=== PATIENT | female | born 1930 | race Caucasian/White ===

== ENCOUNTER 2017-04-07 11:25 | Inpatient (IN) ==
--- NOTE | 2017-04-07 11:46 | Emergency Department Report ---
General Adult HPI - General Chief complaint: Fall Stated complaint: fall Time Seen by Provider: 04/07/17 11:46 Source: patient Mode of arrival: ambulatory Limitations: no limitations - History of Present Illness HPI narrative: Patient is an 86-year-old female sent to the emergency department for increasing weakness multiple number falls. Patient has fallen twice in the last 2 days, is currently in assisted living. Patient has a large skin tear on her left shoulder, does not believe she hit her head last 2 falls. Patient states she just hurts all over, increasing low back pain as well. Patient arrives irregularly irregular rhythm at 150, no history of dysrhythmias or tachycardias. - Related Data Home Medications Medication Instructions Recorded Confirmed Pantoprazole Sodium [Protonix] 40 mg PO DAILY #0 05/03/15 04/07/17 Acetaminophen 1,000 mg PO TID #0 08/08/16 04/07/17 Carbidopa/Levodopa [Carbidopa-Levo 1.5 tab PO TID/E #0 08/08/16 04/07/17 25-100 mg Odt] Ropinirole [Requip] 2 mg PO TID 02/14/17 04/07/17 Tramadol [Ultram] 25 mg PO Q8H PRN 02/14/17 04/07/17 Cholecalciferol (Vitamin D3) 1,000 unit PO DAILY 04/07/17 04/07/17 [Vitamin D3] Omeprazole [Prilosec] 20 mg PO HS 04/07/17 04/07/17 Allergies Allergy/AdvReac Type Severity Reaction Status Date / Time No Known Allergies Allergy Verified 04/07/17 11:38 Review of Systems Constitutional: Reports: weakness. Denies: fever, chills Eyes: Denies: eye discharge, vision change ENT: Denies: throat pain, dental pain Cardiovascular: Reports: palpitations, dyspnea on exertion. Denies: chest pain Respiratory: Denies: cough, dyspnea, wheezes, hemoptysis Gastrointestinal: Denies: abdominal pain, nausea, vomiting Genitourinary: Denies: dysuria, frequency Neurological: Reports: weakness (generalized generalized nonspecific). Denies: headache, numbness Endocrine: Reports: fatigue Hematological/Lymphatic: Denies: easy bleeding, easy bruising PFSH Patient Stated Medical History Parkinson's Disease Yes Cataracts Yes Cardiac Arrhythmia Yes: AFIB TODAY Gastroesophageal Reflux Yes Disease Hx Incontinence Yes: 'NOT TOO BAD' Hx Urinary Tract Infection Yes Osteoarthritis Yes Shingles Yes Post Menopausal Yes Clinic Medical History Adult idiopathic generalized osteoporosis (Acute Medical) Allergic rhinitis (Acute Medical) Chronic kidney disease (Acute Medical) FH: HTN (hypertension) (Acute Medical) GERD (gastroesophageal reflux disease) (Acute Medical) Hyperlipemia (Acute Medical) Leg pain (Acute Medical) Parkinson disease (Acute Medical) Restless leg syndrome (Acute Medical) Surgical History: Nose Surgery due to skin cancer Family History: Family History Father Heart failure Mother High cholesterol Heart attack - Social History Smoking status: Former smoker Substance use type: does not use Alcohol intake frequency: does not drink Physical Exam - General General appearance: alert, in no apparent distress - Eye Eye exam: Present: PERRL, EOMI - ENT ENT exam: Present: normal oropharynx, mucous membranes moist, TM's normal bilaterally - Neck Neck exam: Present: trachea midline. Absent: tenderness - Chest Chest inspection: Present: symmetric chest wall rise. Absent: tenderness - Respiratory Respiratory exam: Present: normal lung sounds bilaterally. Absent: respiratory distress, wheezes, stridor - Cardiovascular Cardiovascular exam: Present: irregular rhythm, normal heart sounds - Abdominal Exam Abdominal exam: Present: soft. Absent: distention, tenderness, guarding - External exam: Present: other (patient has large skin tear on her left shoulder with good approximation,) - Extremities Exam Extremities exam: Present: full ROM - Back Exam Back exam: Present: full ROM, vertebral tenderness (lumbar spine tenderness to palpation). Absent: tenderness, CVA tenderness (R), CVA tenderness (L) - Skin Skin exam: Present: warm, dry, other (see above) - Neurological Exam Neurological exam: Present: alert, oriented X3 - Psychiatric Psychiatric exam: Present: normal affect, normal mood Course Vital Signs Temperature 97.8 F 04/07/17 11:28 Pulse Rate 127 H 04/07/17 11:28 Respiratory Rate 21 04/07/17 11:28 Blood Pressure 110/67 04/07/17 11:28 Pulse Oximetry 96 04/07/17 11:28 Temperature 97.8 F 04/07/17 11:28 Pulse Rate 94 04/07/17 12:30 Respiratory Rate 12 04/07/17 12:30 Blood Pressure 110/67 04/07/17 11:28 Pulse Oximetry 98 04/07/17 12:30 Medical Decision Making - MDM Narrative Medical decision making narrative: Patient with new onset RVR, currently rate controlled with Cardizem time, discuss case with Dr. Rudolph Vela's group, they will admit to the CCU - Medical Records Medical records reviewed: Yes: I reviewed the patient's medical records. - Lab Data Lab results reviewed: Yes: I reviewed the patient's lab results. Result diagrams: 04/07/17 12:01 04/07/17 12:01 Lab Results 04/07/17 04/07/17 Range/Units 12: 12:01 WBC 6.8 (4.5-11.0) T/MM3 RBC 3.44 L (4.00-5.20) M/MM3 Hgb 11.3 L (12-16) GM/DL Hct 35.8 L (36-46) % MCV 104.1 H (80-100) UM3 MCH 32.8 (26-34) UUG MCHC 31.6 (31-37) GM/DL RDW Std Deviation 48.2 (36.9-50.2) FL Plt Count 385 (130-400) T/MM3 MPV 8.7 L (9.4-12.4) UM3 Immature Gran % (Auto) 0.1 (0.0-0.5) % Neut % (Auto) 79.1 H (33-66) % Lymph % (Auto) 10.2 L (23-45) % Burt % (Auto) 9.4 H (0-9.0) % Eos % (Auto) 0.9 (0-4) % Baso % (Auto) 0.3 (0-2) % Neut # 5.4 (1.8-7.7) T/MM3 Lymph # 0.7 L (1-4.8) T/MM3 Burt # 0.6 (0-0.8) T/MM3 Eos # 0.1 (0-0.5) T/MM3 Baso # 0.0 (0-0.2) T/MM3 Abs Immat Gran (auto) 0.01 (0.00-0.03) T/MM3 Turbidity < 20 (0-20) Sodium 139 (134-144) MEQ/L Potassium 4.7 (3.6-5) MEQ/L Chloride 104 (98-107) MEQ/L Carbon Dioxide 25 (22-30) MEQ/L Anion Gap 10 (5-15) MEQ/L BUN 29.0 H (7-17) MG/DL Creatinine 1.1 (0.7-1.2) MG/DL GFR Calculation 47 BUN/Creatinine Ratio 26 (6-26) RATIO Glucose 84 (65-110) MG/DL Calculated Osmolality 273 (261-280) MOSM/KG Calcium 9.7 (8.4-10.2) MG/DL Total Bilirubin 0.80 (0.20-1.30) MG/DL Icterus Index < 2 (0-7) AST 15 (14-36) U/L ALT 19 (9-52) U/L Alkaline Phosphatase 86 (38-126) U/L Troponin I 0.047 (0-0.12) ng/ml B-Natriuretic Peptide 609 H (0-175) pg/mL Total Protein 7.0 (6.3-8.2) G/DL Albumin 4.0 (3.5-5.0) G/DL Globulin 3.0 (2.4-3.6) G/DL Albumin/Globulin Ratio 1.3 (1.1-2.2) RATIO Specimen Hemolysis < 15 (0-25) - Radiology Data Radiology results reviewed: Yes: I reviewed the patient's radiology results. CT scan head: No acute intracranial abnormalities CT scan lumbar spine, chronic compression fractures no acute findings Chest x-ray 2 view: No acute cardiopulmonary findings - EKG Data EKG #1 EKG attestation: Yes: I reviewed and interpreted this EKG. Rate: tachycardia Rhythm: A.Fib [place]/QRS: normal Interpretation: no acute changes Disposition Clinical Impression: Atrial fibrillation with RVR Disposition: 02 To [facility] Condition: Stable - Seen By: physician
[2017-04-07] MEDS ORDERED: DiltiaZEM 25 MG/5 ML INJECTION IVP ONE (11:52)
[2017-04-07] MEDS: SALINE FLUSH 10ml SYRINGE IVF PRN ×3 (11:55→22:19)
[2017-04-07] MEDS ORDERED: DiltiaZEM Drip 125 MG in NS 100 ML IV SCH (12:00)
[2017-04-07] MEDS: NS 1,000 ML IV ONE ×2 (12:12→16:32)
--- OUTSIDE RECORDS SUMMARY | 2017-04-07 12:22 | External Medical Summary | Referral Summary ---
:1930 Author Organization [facility] [place] [place] [address] Care Team Providers Name Role Phone Kevin Stewart Primary Care Physician Encounter VC Date(s): 08/07/15 - 08/07/15 [facility] [place] [place] [phone] [place] Discharge Diagnosis: Back pain, chronic Discharge Disposition: 01-Home or Self Care Attending Physician: Jarett Casey APRN Admitting Physician: Jarett Casey APRN Vital Signs Most recent to oldest [Reference Range]: 1 Peripheral Pulse Rate [60-100 bpm] 78 bpm (08/07/15 10:16 AM) Blood Pressure [90-140/60-90 mmHg] 134/72 mmHg (08/07/15 10:16 AM) Problem List Condition Effective Dates Status Health Status Informant Adult idiopathic generalized Active osteoporosis(Confirmed) Allergic rhinitis(Confirmed) Active Chronic kidney disease Active (CKD)(Confirmed) Blood pressure elevated(Confirmed) Active GERD without esophagitis(Confirmed) Active Hyperlipidemia(Confirmed) Active Acute leg pain(Confirmed) Active Parkinson's disease(Confirmed) Active Restless legs syndrome Active (RLS)(Confirmed) Allergies, Adverse Reactions, Alerts No Known Allergies Medications cetirizine 10 mg oral tablet 10 mg 1 tabs, Oral, Daily, as needed for allergy symptoms, # 10 tabs, 0 Refill(s ) Start Date: 05/31/15 Status: Orderedmeloxicam 15 mg oral tablet 15 mg 1 tabs, Oral, Daily, # 15 tabs, 0 Refill(s), Pharmacy: [facility] # [id number], 1 tabs Oral Daily Start Date: 08/07/15 Status: OrderedPhysical Therapy Physical Therapy, See Instructions, Eval and treat for back pain and leg weakness., # 1 Each, 0 Refill(s) Start Date: 02/14/15 Status: OrderedProtonix 40 mg oral delayed release tablet 40 mg 1 tabs, Oral, Daily, # 90 tabs, 1 Refill(s), Pharmacy: [facility] # [id number], PT REQUESTS MEDICATION DELIVERY, 1 tabs Oral Daily,x90 days Start Date: 05/31/15 Stop Date: 11/27/15 Status: OrderedrOPINIRole 1 mg oral tablet 1 mg 1 tabs, Oral, Daily, Take with 3 mg pill., # 30 tabs, 0 Refill(s), Pharmacy : [facility] #[id number], 1 tabs Oral Daily,Instr:Take with 3 mg pill. Start Date: 08/07/15 Status: OrderedrOPINIRole 3 mg oral tablet 3 mg 1 tabs, Oral, Daily, # 90 tabs, 1 Refill(s), Pharmacy: [facility] # [id number], 1 tabs Oral Daily,x90 days Start Date: 05/31/15 Stop Date: 11/27/15 Status: OrderedTylenol Extra Strength 1,000 mg, Oral, TID, as needed for pain, 0 Refill(s) Start Date: 02/14/15 Status: Ordered Results No data available for this section Immunizations Vaccine Date Refusal Reason influenza virus vaccine, inactivated1 04/19/15 pneumococcal 23-polyvalent vaccine2 05/04/15 1Result Comment: [04/19/2015] High-Dose [id number] History: Bettye Javier Procedures Procedure Date Related Diagnosis Body Site Dual-energy X-ray absorptiometry (DXA), bone 12/12/10 density study, 1 or more sites; axial skeleton (eg, hips, pelvis, spine) Social History Social History Type Response Smoking Status Former smoker Assessment and Plan Extracted from: Title: Office Visit Note Author: Jarett Casey [employer] Date: 08/07/15 Assessment/Plan Back pain, chronic In addition to her increased back pain she also reports that she is having more difficulty with her restless legs. Potentiallythis may be exacerbating her back pain as well. W emilio will have her increase by 1 mg tonight and call us witha report on to see if this is improve her symptoms. Additionally I think it is likely that her back pain is related to osteoarthriti sand some anti-inflammatory would be a good choicefor her. A recent basement metabolic panel showsnormal kidney function. We will have her take meloxicam dailyfor 2 weeksand check another basic metabolic panel before continuing this therapy. Ordered: Basic Metabolic Panel Orders: meloxicam, 15 mg 1 tabs, Oral, Daily, # 15 tabs, 0 Refill(s), Pharmacy: [facility] #[id number], 1 tabs Oral Daily rOPINIRole, 1 mg 1 tabs, Oral, Daily, Take with 3 mg pill., # 30 tabs, 0 Refill(s), Pharmacy: [facility] #[id number], 1 tabs Oral Daily,Instr:Take with 3 mg pill.
--- OUTSIDE RECORDS SUMMARY | 2017-04-07 12:22 | External Medical Summary | Referral Summary ---
:1930 [facility] [address] [place] [address] [place] [phone] Care Team Providers Name Role Phone Kevin Stewart Primary Care Physician Encounter VC Date(s): 05/24/15 - 05/24/15 [facility] [place] [place] [phone] [place] Discharge Diagnosis: Visit for wound care Discharge Diagnosis: Multiple skin tears Discharge Disposition: 01-Home or Self Care Attending Physician: Kevin Stewart DO Admitting Physician: Kevin Stewart DO Vital Signs Most recent to oldest [Reference Range]: 1 Temperature Tympanic [36.6-38.1 degC] 36.7 degC (05/24/15 9:22 AM) Peripheral Pulse Rate [60-100 bpm] 93 bpm (05/24/15 9:22 AM) Blood Pressure [90-140/60-90 mmHg] 115/55 mmHg (05/24/15 9:22 AM) SpO2 96 % (05/24/15 9:22 AM) Problem List Condition Effective Dates Status Health Status Informant Adult idiopathic generalized Active osteoporosis(Confirmed) Allergic rhinitis(Confirmed) Active Chronic kidney disease Active (CKD)(Confirmed) Blood pressure elevated(Confirmed) Active GERD without esophagitis(Confirmed) Active Hyperlipidemia(Confirmed) Active Acute leg pain(Confirmed) Active Parkinson's disease(Confirmed) Active Restless legs syndrome Active (RLS)(Confirmed) Allergies, Adverse Reactions, Alerts No Known Allergies Medications Lipitor 20 mg oral tablet 20 mg 1 tabs, Oral, Daily, # 90 tabs, 0 Refill(s), Pharmacy: [facility] # [id number], 1 tabs Oral Daily,x90 days Start Date: 02/14/15 Stop Date: 05/15/15 Status: OrderedPhysical Therapy Physical Therapy, See Instructions, Eval and treat for back pain and leg weakness., # 1 Each, 0 Refill(s) Start Date: 02/14/15 Status: OrderedProtonix 40 mg oral delayed release tablet 40 mg 1 tabs, Oral, Daily, # 30 tabs, 0 Refill(s), Pharmacy: [facility] # [id number], PT REQUESTS MEDICATION DELIVERY, 1 tabs Oral Daily Start Date: 02/27/15 Status: OrderedRequip 2 mg oral tablet 2 mg 1 tabs, Oral, Daily, # 90 tabs, 3 Refill(s), Pharmacy: [facility] # [id number], 1 tabs Oral Daily,x90 days Start Date: 03/31/15 Stop Date: 03/25/16 Status: OrderedTylenol Extra Strength 1,000 mg, Oral, TID, as needed for pain, 0 Refill(s) Start Date: 02/14/15 Status: Ordered Results No data available for this section Immunizations Vaccine Date Refusal Reason influenza virus vaccine, inactivated1 04/19/15 pneumococcal 23-polyvalent vaccine2 05/04/15 1Result Comment: [04/19/2015] High-Dose [id number] History: Bettye Javier Procedures Procedure Date Related Diagnosis Body Site Dual-energy X-ray absorptiometry (DXA), bone 12/12/10 density study, 1 or more sites; axial skeleton (eg, hips, pelvis, spine) Social History Social History Type Response Smoking Status Former smoker Assessment and Plan Extracted from: Title: Office Visit Note Author: Kevin Stewart DO Date: 05/24/15 Assessment/Plan Multiple skin tears 1. Skin tears appear to be healing well. 2. Continue with dressing changes needed. Recommended using DuoDERM instead of the dressing they had previously. 3. Follow-up in one week for reevaluation, earlier if any new concerns. Ordered: Office Visit Level 3 Est 86014 Visit for wound care As above. Ordered: Office Visit Level 3 Est 43970
--- OUTSIDE RECORDS SUMMARY | 2017-04-07 12:22 | External Medical Summary | Clinical Summary ---
:1930 Author Organization [facility] Address [address] [place] [address] Phone Care Team Providers Name Role Phone Unavailable Primary Care Provider Unavailable Source Comments Some departments are not documenting in the electronic medical record. If you do not see the information that you expected, contact Release of Information in the Health Information Management department at [phone] for further assistance in locating additional records.[facility] Allergies No Known Allergies Current Medications Prescription Sig. Disp. Refills Start Date End Date Status acetaminophen (TYLENOL) Take 2 Tabs by 120 Tab 3 11/09/2014 Active 500 mg tablet mouth every 8 hours. cetirizine (ZYRTEC) 10 mg Take 1 Tab by 30 Tab 11 11/09/2014 Active tabletIndications: mouth daily. Allergic rhinitis, unspecified allergic rhinitis type atorvastatin (LIPITOR) 20 Take 1 Tab by 90 Tab 3 11/09/2014 Active mg tabletIndications: mouth daily. Hyperlipidemia rOPINIRole (REQUIP) 1 mg Take 1 Tab by 30 Tab 3 12/09/2014 Active tabletIndications: mouth daily. Restless legs syndrome Active Problems Problem Noted Date Excessive drinking alcohol 11/10/2014 Overview: 11/09/2014: Pt advised to cut back on her alcohol use to 7 or less beers a week. Currently drinks upto 2 beers almost daily. Unintentional weight loss 11/10/2014 Overview: 11/09/2014: Body mass index is 18.29 kg/(m^2). 100 lbs. Pt advised to eat more high calorie foods and supplement with Boost shakes. Will re-evaluate in 4 weeks. Restless legs syndrome 04/11/2014 Overview: 04/11/2014: RLS, foot cramps, tremors. At night she can not hold her legs still and the feet get cramps. She gets restless legs 4-5x a week and she can not find an association with days she has it versu s not. She gets some numbness and tingling in her legs, but no B/B incontinence. Prescribed a trial of ropinirole 0.25 mg qhs for 2 days, then 0.5 mg. Stay off atorvastatin for 2 weeks to see if the foot cramps get better. 11/09/2014: Thinks ropinirole helped but ran out and did not have a refill. Will restart. 12/09/2014: Taking ropinirole 0.5 mg. No improvement. Increase to 1 mg. UTI (lower urinary tract infection) 12/27/2013 Overview: 12/27/2013: +Dysuria on top of chronic sx. Urine dip +nitrite, blood and leuks. Based on last C+S from 2012, prescribed keflex for 5 days. Urine sent for C+S. Can tailor abx based on the report. UPDATE &g t;> Urine grew >100K klebsiella, S to keflex. 11/09/2014: Sx of UTI again. Rxed cephalexin. Urine sent for C+S. UPDATE >&gt ; Cx grew >100k Klebsiella. S to keflex. 12/09/2014: Sx improved, then recurred after she finished her course of abx. Rxed keflex again for 7 days. Urine sent for C+S. Essential tremor 11/10/2013 Overview: Mysoline caused side effects, inderal at low dose not effective 12/27/2013: Has been tried on BB, primidone in ~ 12/2012, but did not tolerate because of side effects. Referred to Neurology and Dr Rea started her on gabapentin. She is now on 200 mg tid. Reports no real resolution, can typically suppress them with conscious effort, otherwise not much change. Feels like gabapentin is making her whoozy, and she is having to be really careful walking, so she does not fall. Asked her to let Dr Rea know. Would certainly not want her to fall, considering her frailty and osteoporosis. Need to watch dose since has CKd stage 3. 04/11/2014: See 'tremor' for details. Last Assessment & Plan: Formatting of this note may be different from the original. Will start gabapentin slowly as follows: AM PM Bed Week 1 100mg Week 2 100mg 100mg Week 3 100mg 100mg 100mg Week 4 100mg 100mg 200mg Week 5 200mg 100mg 200mg Week 6 200mg 200mg 200mg Allergic rhinitis 10/29/2013 Overview: 10/27/2013: prescribed a trial of daily zyrtec. 11/25/2013: considerably better with zyrtec. 11/09/2014: Has been out of meds. Recurrent sx. Med refilled. 12/09/2014: Back on zyrtec. Sx significantly better controlled. Rash 10/29/2013 Overview: 10/27/2013: following w/outside Derm for skin cancer tx. Derm wanted some blodd work. Asked her to get records. Will order accordingly. 11/25/2013: recommended OTC hydrocortisone cream for the pruritic rash on the chest 04/11/2014: Says is resolved at this time Mixed incontinence urge and stress 10/27/2013 Overview: 12/04/2012: Frequency, urgency, dysuria for a few days. Urine dip dirty. rxed 7 days of keflex. Cr Cr ~ 26. Hence did not want to do bactrim, nitrofurantoin or cipro. Will send for C+S. January 26, 2013: Urge and stress incontinence with overactive bladder: High risk of side effects with anticholinergics. Handout given on bladder re- training. Will work on these. The dysuria resolved with the round of abx. 10/27/2013: Mmyrbetriq helped some, but too expensive, and she does not think the effectiveness was worth the cost. Wants to try something cheaper. Prescribed detrol 1 mg bid. 12/27/2013: Detrol 1 mg bid also too is expensive and she has not picked it either. Told her since already having side effects from the gabapentin, I don't want to add another agent with the potential to cause more side effects. Reports having dysuria in addition right now. Urine dip +nitrite, blood and leuks. Based on last C+S from 2012, prescribed keflex for 5 days. Urine sent for C+S. Can tailor abx based on the report. 04/11/2014: She continues to have frequent trips to the bathroom. Myrbetriq and detrol have been prescribed, but were too expensive. Will rx a trial of oxybutynin low dose, once ropinirole tried for for RLS. 12/09/2014: She stopped the medicine after she ran out of her refills. Does not remember if it helped. Easy bruising 12/04/2012 Overview: December 04, 2012 CBC, PLTs ok. Due to ?CKD causing impaired renal function. CKD (chronic kidney disease) 12/04/2012 Overview: December 04, 2012 Will monitor for now. She has had a renal U/s in 05/2010 which showed medical renal disease. Avoid nephrotoxins. Ordered PTH, Vit d levels with the next set of labs. December 27, 2013 (Stage 3): eGFR ~ 30-40s. Vitamin D ok. Will get PTH with next set if labs (last was 'TNP'. Watch for now. Avoid nephrotoxic drugs. 11/09/2014: Ordered labs 12/09/2014: Vit D and PTH levels ok. Creatinine stable. Tremors of nervous system 11/04/2012 Overview: November 04, 2012 Has been having tremors in the hands, also feels centrally shaky. Appetite ok, no diarrhea or constipation. For ~ yr she had been using her finger to apply thyroid medicine in her cat's e ar. Recently realized was not supposed to use bare finger and so has started wearing a glove when doing it. Continued hair loss Ordered CBC, CMP, TSH for underlying issues. Neuro exam wnl. Likely essential tremors (do not appear consistent with PD, no other features of PD). BP mostly on the low side, will try primidone if all labs wnl. RTC 1 month for re-eval. December 04, 2012 CBC (high MCH), CMP (CKD), TSH were wnl. I asked to start primidone through a phone message. Took one dose of primidone (but took 1 full 50 mg tab instead of 1/2 as I had recommended). [place] sleepy all day. Got nervous, has guests coming over the weekend, so decided to wait till they were one to restart it. Told her actually might be a better idea to try this when she has people in the [facility], so will be supervised incase she has side effects. Will restart when she has company over the weekend, at 1/2 dose. And keep it at 25 mg. January 26, 2013: Took primidone for a week. Side effects. Feeling giddy, whoozy. Tired. Did not like it and stopped. Tremors persist. At rest mostly, worse in antigravity position. Seem c/w exaggerated phy siological tremor). No hindrance with activities. Says does not want extensive work up or treatment which will cause side effects. Are not that bothersome. Does not want to see a neurologist. Will try low dose propranolol (10 mg bid) instead. Advised caution. 10/27/2013: CBC (high MCH), CMP (CKD), TSH were wnl. Did not tolerate primidone in 11/2012. No hindrance with activities, till recently when they have been worsening and been more disruptive, getting worse with action. Did not tolerate propranolol either in 01/2013. I had offered to refer to Neurology and she had refused. But agreeable to seeing them now, considering tremors more disruptive and her intolerance of medication. 11/25/2013: Not better, but not worse either. Continue the gabepentin as rxed by Dr Rea in Neurology. 04/11/2014: She has not tolerated primidone and BB in the past. Was referred to Neuro and started on gabapentin. She is not taking the gabapentin either anymore, because of side effects and ineffectiveness. Started ropinirole trial for RLS. 11/09/2014: Thinks ropinirole helped. But ran out and did not have a refill. Refilled. Asked her to check w/Neuro again, for possibility of DBS, since has been intolerant of medication and tremors are very distressing and disruptive. 12/09/2014: Taking ropinirole 0.5 mg. No improvement, tolerating ok. Increase dose to 1 mg. Hair loss 08/15/2011 Overview: Hair loss: derm said to have TSH checked. Last check was in 02/2011: wnl. Homocysteine level was elevated, Has been on B12 orally daily since. Also on MVI, Ca+Vit D supplementation. Elevated cr, otherwise labs unremarkable. GERD (gastroesophageal reflux disease) 04/12/2011 Overview: November 04, 2012 Takes alkaseltzer and zantac with good relief. 12/09/2014: Protonix rxed, since she responds well to it. Leg pain 03/07/2011 Overview: Reports similar sensation in the leg as RLS she knows she has. Sx have been more intense, and more frequent, occuring regularly during the daytime as well. No recent exertional activity. Exercises regularly in her exercise class, also swims. Has not over done anything. No new medicines. No signs or sx of PAD, neurogenic claudication, myalgias or paresthesias. CBC, fe studies (mild anemia on previous testing with elevated RDW), folic acid , B12 (macrocytosis on last test), vit D level, CMP, TSH have been unremarkable in 02/2011. ? nerve impingement in the L-S spine, leading to patient's sx, or PAD (this seems less likely, since she does not have risk factors, and hx not typical for vascular claudication). ? Statin side effect 11/25/2013: LBP: for the last 2-3 months. Non radiating, no associated tingling, numbness and weakness. Worse with repetitive bending, leaning forward. Hx of osteoporosis. Ordered plain film. Plain APAP 1 gm tid. Refrain from NSAIDs. 12/27/2013: Since ~ 08/2013. 11/25/2013: L SPINE AP & LATERAL IMPRESSION: 1. SUPERIOR ENDPLATE CENTRAL ENDPLATE COMPRESSION DEFORMITY. 2. GENERALIZED BONY DEMINERALIZATION. 3. DEGENERATIVE CHANGES INVOLVING THE MID AND LOWER LUMBAR SPINE WITH MARKED JOINT SPACE LOSS AT THE L4-L5 AND L5-S1 LEVELS. DEXA was done as well, has not been read yet. Last one was in 2010. Was nervous about taking 1 gm tid APAP and has been taking only 650 mg prn and not daily. Significant pain when working in her yard, and has to take things very slow. Explained to her why we cannot do N SAIDs (because of CKD), and that APAP 1 gm tid should be ok. She will try this now and update me in 2-3 weeks. Also trial of nasal calcitonin for the pain from the osteoporotic fracture. If not better w ith this, can do stronger meds like hydrocodone. 04/11/2014: Has significant pain in the back, but she has learnt her limitations. She has been taking extra strength Tylenol as needed, which is usually at night. It relieves the pain. Will continue. If gets worse >> will get MRI and refer her to the Pain clinic. Last Assessment & Plan: Cramping not better with the B12 supplementation. On lovastatin 60 mg for years. Advised to stop taking for 2-3 weeks and see if the cramps in the legs get better. If they don't get better, then restart the medicine. If they get better with stopping the medicine, then let me know by phone. And we can try something else for cholesterol lowering. Could try a dopaminergic agent too for RLS, over subsequent visits if this continue to be a problem. Macrocytosis without anemia 03/07/2011 Overview: 11/09/2014: Drinks 2 beers daily. Asked her to cut down to 7 or less/week Anemia 03/07/2011 Osteoporosis 12/20/2010 Overview: The T score on the femur neck is worse on latest DEXA, compared to the one in 2005. She has been on evista since she was diagnosed, because she had jaw pain with the fosamax. 08/14/2011: Was started on boniva, which caused heartburn and jaw pain. Was switched to fosamax. Tolerating this one well. 12/04/2012: stopped the bisphosphonate due to CKD stage 3-4. 10/27/2013: Ordered DEXA. Medicine was stopped due to CKD. Will advise after results. 11/25/2013: Had DEXA done today. Will wait for results >> osteopenia. Nasal calcitonin for osteoporotic fracture pain. Last Assessment & Plan: Doing well on the alendronate. Tolerating without issues. Physical exam, annual 12/05/2010 Overview: PAP smear >> not needed Mammogram >> not needed Colonoscopy >> not needed DEXA >> ordered, she is currently on evista ( was on fosamax for several years, but had lot of jaw issues and was switched to evista) Lung Cancer Screen: not needed Lipid panel, CMP >> gets regularly. TD >> in 2005 Pneumovax >> patient is sure she has had this since she turned 63 yo. PCV 13 given on 11/09/2014. Zoster >> rx given to patient, not sure if she received it yet Last Assessment & Plan: Healthy, active lady. Hyperlipidemia 11/22/2010 Overview: On lovastatin 60 mg for several years. November 04, 2012 Not taking medicine anymore. Ordered a lipid panel. 11/04/2012: Total chol 280/Trigs65/SEG587/HHK014. 11/30/2012: restart lipitor. Recheck in 3 months. 11/25/2013: Total chol 232/Trigs74/HDL97/VCO230 December 27, 2013 On lipitor 20 mg. Will continue. 11/09/2014: in 03/2014, I had asked her to hold the lipitor for 2 weeks to see if leg cramps improved. They did not. Ordered repeat choelsterol. UPDATE >&gt ; cholesterol high again. Asked her to restart the lipitor. Total chol 276/Jqwem321/HDL95/KQG710 12/09/2014: Back on lipitor 20 mg. Last Assessment & Plan: Formatting of this note may be different from the original. Lab Results Component Value Date CHOL 224* 03/07/2011 TRIG 68 03/07/2011 HDL 76 03/07/2011 LDL 126* 03/07/2011 VLDL 14 03/07/2011 NONHDLCHOL 148 03/07/2011 D/C lovastatin on 2-3 weeks. Resolved Problems Problem Noted Date Resolved Date Cat bite 12/20/2010 03/07/2011 Overview: With swelling, redness and tenderness around the site of the bite. Prescribed augmentin. Palpitations 11/22/2010 12/24/2010 Last Assessment & Plan: Reports she has not had the sx since she saw me last. Reassured her that the lab did not show anything remarkable. She is to return is sx recur. Immunizations Name Dates Previously Given Next Due Flu Vaccine Trivalent=>3 YO 04/11/2014 Pneumococcal Vaccine(13-Charleen 11/09/2014 Peds/immunocompromised adult) Td Vaccine 12/04/2005 Varicella-Zoster Vaccine (Shingles) 12/05/2010 (Deferred: Patient Refused - not available in the clinic, RX given to get at a pharmacy) Family History Medical History Relation Name Comments Arthritis Father Diabetes Father Hearing Loss Father Heart Disease Father High Cholesterol Father Arthritis Mother Hearing Loss Mother Heart Disease Sister Relation Name Status Comments Father Mother Sister Social History Tobacco Use Types Packs/Day Years Used Date Former Smoker Quit: 07/28/1984 Smokeless Tobacco: Never Used Alcohol Use Drinks/Week oz/Week Comments Yes 3 Glasses of wine 4.8 5 Cans of beer Sex Assigned at Date Recorded Not on file Last Filed Vital Signs Vital Sign Reading Time Taken Blood Pressure 130/70 12/09/2014 8:54 AM CDT Pulse 95 12/09/2014 8:54 AM CDT Temperature 37.2 C (98.9 F) 12/09/2014 8:54 AM CDT Respiratory Rate 18 12/09/2014 8:54 AM CDT Oxygen Saturation 95% 12/09/2014 8:54 AM CDT Inhaled Oxygen Concentration - - Weight 46.3 kg (102 lb) 12/09/2014 8:54 AM CDT Height 157.5 cm (5' 2") 12/09/2014 8:54 AM CDT Body Mass Index 18.66 12/09/2014 8:54 AM CDT Plan of Treatment Health Maintenance Due Date Last Done Comments PERTUSSIS VACCINE 1941 SHINGLES VACCINE 1988 PHYSICAL (COMPREHENSIVE) EXAM 04/11/2015 04/11/2014, 12/05/2010 PREVNAR/PNEUMOVAX (#2) 11/10/2015 11/09/2014, 11/09/2014 TETANUS VACCINE 12/05/2015 12/04/2005 INFLUENZA VACCINE 03/28/2017 04/11/2014, 04/11/2014 OSTEOPOROSIS SCREENING Completed 12/12/2010, 12/20/2005
--- OUTSIDE RECORDS SUMMARY | 2017-04-07 12:22 | External Medical Summary | Referral Summary ---
:1930 Author [facility] Address [address] [place] [address] [place] [phone] Care Team Providers Name Role Phone Kevin Stewart Primary Care Physician Encounter [facility] [id number] Date(s): 05/15/15 - 05/15/15 [facility] [place] [phone] [place] Discharge Diagnosis: Muscle weakness (generalized) Discharge Diagnosis: Noninfected skin tear of leg Discharge Diagnosis: Restless legs syndrome (RLS) Discharge Diagnosis: Encounter for wound care Discharge Disposition: 01-Home or Self Care Attending Physician: Kevin Stewart DO Admitting Physician: Kevin Stewart DO Vital Signs Most recent to oldest [Reference Range]: 1 Temperature Tympanic [36.6-38.1 degC] 35.7 degC *LOW* (05/15/15 9:52 AM) Peripheral Pulse Rate [60-100 bpm] 75 bpm (05/15/15 9:52 AM) Blood Pressure [90-140/60-90 mmHg] 110/58 mmHg (05/15/15 9:52 AM) Problem List Condition Effective Dates Status [...] Daily, # 90 tabs, 0 Refill(s), Pharmacy: [facility] # [id number], 1 tabs Oral Daily,x90 days Start Date: 02/14/15 Stop Date: 05/15/15 Status: OrderedPhysical Therapy Physical Therapy, See Instructions, Eval and treat for back pain and leg weakness., # 1 Each, 0 Refill(s) Start Date: 02/14/15 Status: OrderedProtonix 40 mg oral delayed release tablet 40 mg 1 tabs, Oral, Daily, # 30 tabs, 0 Refill(s), Pharmacy: [facility] # [id number], PT REQUESTS MEDICATION DELIVERY, 1 tabs Oral Daily Start Date: 02/27/15 Status: OrderedRequip 2 mg oral tablet 2 mg 1 tabs, Oral, Daily, # 90 tabs, 3 Refill(s), Pharmacy: [facility] # [id number], 1 tabs Oral Daily,x90 days Start Date: 03/31/15 Stop Date: 03/25/16 Status: OrderedTylenol Extra Strength 1,000 mg, Oral, TID, as needed for pain, 0 Refill(s) Start Date: 02/14/15 Status: Ordered Results No data available for this section Immunizations Vaccine Date Refusal Reason influenza virus vaccine, inactivated1 04/19/15 pneumococcal 23-polyvalent vaccine2 05/04/15 1Result Comment: [04/19/2015] High-Dose [id number] History: Counce Procedures Procedure Date Related Diagnosis Body Site Dual-energy X-ray absorptiometry (DXA), bone 12/12/10 density study, 1 or more sites; axial skeleton (eg, hips, pelvis, spine) Social History Social History Type Response Smoking Status Former smoker Assessment and Plan Extracted from: Title: Office Visit Note Author: Kevin Stewart DO Date: 05/15/15 Assessment/Plan Encounter for wound care Pathophysiology of this presentation, and differential diagnosis, discussed in detail with the patient. All questions were answered. 1. Dressing were changed today, was appear to be healing well without any signs for infection 2. Follow-up in a week for reevaluation. 3. Continue DuoDERM use, I anticipate that next week these should heal completely. Ordered: Office Visit Level 4 Est 03215 Muscle weakness (generalized) Pathophysiology of this presentation, and differential diagnosis, discussed in detail with the patient. All questions were answered. 1. Continue with rehabilitation therapy. 2. Up with assistance only. 3. Recommended Lif[employer] application. Ordered: Office Visit Level 4 Est 74131 Noninfected skin tear of leg As above. Ordered: Office Visit Level 4 Est 90527 Restless legs syndrome (RLS) 1. Recommended giving her the ropinirole at 1800 hour instead of 2000. 2. Follow-up in a week for reevaluation. Ordered: Office Visit Level 4 Est 52441
--- OUTSIDE RECORDS SUMMARY | 2017-04-07 12:22 | External Medical Summary | Referral Summary ---
:1930 Author [facility] Address [address] [place] [address] [place] [phone] Care Team Providers Name Role Phone Kevin Stewart Primary Care Physician Encounter [facility] Date(s): 07/17/15 - 07/17/15 [facility] [place] [phone] [place] Discharge Disposition: 01-Home or Self Care Attending Physician: Jarett Casey APRN Admitting Physician: Jarett Casey APRN Referring Physician: Kevin Stewart DO Vital Signs Most recent to oldest [Reference Range]: 1 Peripheral Pulse Rate [60-100 bpm] 90 bpm (07/17/15 3:03 PM) Respiratory Rate [14-20 br/min] 18 br/min (07/17/15 3:03 PM) Blood Pressure [90-140/60-90 mmHg] 102/78 mmHg (07/17/15 3:03 PM) SpO2 96 % (07/17/15 3:03 PM) Problem List Condition Effective Dates Status Health [...] 0 Refill(s ) Start Date: 05/31/15 Status: OrderedCipro 500 mg oral tablet 500 mg 1 tabs, Oral, q12hr, X 7 days, # 14 tabs, 0 Refill(s), Pharmacy: [facility] #[id number], 1 tabs Oral q12hr,x7 days Start Date: 07/17/15 Stop Date: 07/24/15 Status: OrderedPhysical Therapy Physical Therapy, See Instructions, Eval and treat for back pain and leg weakness., # 1 Each, 0 Refill(s) Start Date: 02/14/15 Status: OrderedProtonix 40 mg oral delayed release tablet 40 mg 1 tabs, Oral, Daily, # 90 tabs, 1 Refill(s), Pharmacy: [facility] # [id number], PT REQUESTS MEDICATION DELIVERY, 1 tabs Oral Daily,x90 days Start Date: 05/31/15 Stop Date: 11/27/15 Status: OrderedrOPINIRole 3 mg oral tablet 3 mg 1 tabs, Oral, Daily, # 90 tabs, 1 Refill(s), Pharmacy: [facility] # [id number], 1 tabs Oral Daily,x90 days Start Date: 05/31/15 Stop Date: 11/27/15 Status: OrderedTylenol Extra Strength 1,000 mg, Oral, TID, as needed for pain, 0 Refill(s) Start Date: 02/14/15 Status: Ordered Results Urinalysis Most recent to oldest [Reference Range]: 1 UA Color Yellow (07/17/15 2:50 PM) UA Appear Cloudy *ABN* (07/17/15 2:50 PM) UA pH [5.0-8.0] 6.5 (07/17/15 2:50 PM) UA Leuk Est [Negative] Pos 3+ *ABN* (07/17/15 2:50 PM) UA Nitrite [Negative] Positive *ABN* (07/17/15 2:50 PM) UA Protein [Negative] Pos 1+ *ABN* (07/17/15 2:50 PM) UA Glucose [Negative] Negative (07/17/15 2:50 PM) UA Ketones [Negative] Negative (07/17/15 2:50 PM) UA Urobilinogen [<=1.0 mg/dL] 0.2 mg/dL (07/17/15 2:50 PM) UA Bili [Negative] Negative (07/17/15 2:50 PM) UA Blood [Negative] Pos 2+ *ABN* (07/17/15 2:50 PM) UA Spec Grav [1.003-1.030] 1.020 (07/17/15 2:50 PM) Type Clean Catch (07/17/15 2:50 PM) UA WBC [0-4 /HPF] >50 /HPF *ABN* (07/17/15 2:50 PM) UA RBC [0-2] 2-5 (07/17/15 2:50 PM) Epithelial Cells 5-10 (07/17/15 2:50 PM) UA Bacteria Numerous *ABN* (07/17/15 2:50 PM) UA Mucous Present (07/17/15 2:50 PM) Immunizations Vaccine Date Refusal Reason influenza virus vaccine, inactivated1 04/19/15 pneumococcal 23-polyvalent vaccine2 05/04/15 1Result Comment: [04/19/2015] High-Dose [id number] History: Bettye Javier Procedures Procedure Date Related Diagnosis Body Site Dual-energy X-ray absorptiometry (DXA), bone 12/12/10 density study, 1 or more sites; axial skeleton (eg, hips, pelvis, spine) Social History Social History Type Response Smoking Status Former smoker Assessment and Plan No data available for this section
--- OUTSIDE RECORDS SUMMARY | 2017-04-07 12:22 | External Medical Summary | Referral Summary ---
:1930 Author Organization [facility] Address [address] [place] [address] [place] [phone] Care Team Providers Name Role Phone Kevin Stewart Primary Care Physician Encounter VC Date(s): 08/21/15 - 08/21/15 [facility] [place] [phone] [place] Discharge Diagnosis: Chronic kidney disease, unspecified Discharge Disposition: 01-Home or Self Care Attending Physician: Jarett Casey APRN Admitting Physician: Jarett Casey APRN Vital Signs Most recent to oldest [Reference Range]: 1 Peripheral Pulse Rate [60-100 bpm] 87 bpm (08/21/15 8:46 AM) Respiratory Rate [14-20 br/min] 18 br/min (08/21/15 8:46 AM) Blood Pressure [90-140/60-90 mmHg] 120/84 mmHg (08/21/15 8:46 AM) SpO2 98 % (08/21/15 8:46 AM) Problem List Condition Effective Dates Status [...] 0 Refill(s ) Start Date: 05/31/15 Status: OrderedPhysical Therapy Physical Therapy, See Instructions, Eval and treat for back pain and leg weakness., # 1 Each, 0 Refill(s) Start Date: 02/14/15 Status: OrderedProtonix 40 mg oral delayed release tablet 40 mg 1 tabs, Oral, Daily, # 90 tabs, 1 Refill(s), Pharmacy: [facility] # [id number], PT REQUESTS MEDICATION DELIVERY, 1 tabs Oral Daily,x90 days Start Date: 05/31/15 Stop Date: 11/27/15 Status: OrderedrOPINIRole 1 mg oral tablet 1 mg 1 tabs, Oral, Daily, Take with 3 mg pill., # 30 tabs, 0 Refill(s), Pharmacy : [facility] #[id number], 1 tabs Oral Daily,Instr:Take with 3 mg pill. Start Date: 08/07/15 Status: OrderedrOPINIRole 3 mg oral tablet 3 mg 1 tabs, Oral, Daily, # 90 tabs, 1 Refill(s), Pharmacy: [facility] # [id number], 1 tabs Oral Daily,x90 days Start Date: 05/31/15 Stop Date: 11/27/15 Status: OrderedTylenol Extra Strength 1,000 mg, Oral, TID, as needed for pain, 0 Refill(s) Start Date: 02/14/15 Status: Ordered Results No data available for this section Immunizations Vaccine Date Refusal Reason influenza virus vaccine, inactivated1 04/19/15 pneumococcal 23-polyvalent vaccine2 05/04/15 1Result Comment: [04/19/2015] High-Dose [id number] History: Bettye Javier Procedures Procedure Date Related Diagnosis Body Site Dual-energy X-ray absorptiometry (DXA), bone 12/12/10 density study, 1 or more sites; axial skeleton (eg, hips, pelvis, spine) Social History Social History Type Response Smoking Status Former smoker Assessment and Plan No data available for this section
--- OUTSIDE RECORDS SUMMARY | 2017-04-07 12:23 | External Medical Summary | Referral Summary ---
:1930 Author Organization [facility] Address [address] [place] [address] [place] [phone] Care Team Providers Name Role Phone Kevin Stewart Primary Care Physician Encounter VC Date(s): 12/20/15 - 12/20/15 [facility] [address] [place] [phone] [place] Discharge Diagnosis: Essential tremor Discharge Diagnosis: Inflamed seborrheic keratosis Discharge Disposition: 01-Home or Self Care Attending Physician: Kevin Stewart DO Admitting Physician: Kevin Stewart DO Vital Signs Most recent to oldest [Reference Range]: 1 Peripheral Pulse Rate [60-100 bpm] 71 bpm (12/20/15 10:25 AM) Respiratory Rate [14-20 br/min] 18 br/min (12/20/15 10:25 AM) Blood Pressure [90-140/60-90 mmHg] 112/64 mmHg (12/20/15 10:25 AM) Mean Arterial Pressure, Cuff 80 mmHg (12/20/15 10:25 AM) SpO2 96 % (12/20/15 10:25 AM) Problem List Condition Effective Dates Status [...] # 90 tabs, 1 Refill(s), Pharmacy: [facility] # [id number], PT REQUESTS MEDICATION DELIVERY, 1 tabs Oral Daily,x90 days Start Date: 05/31/15 Stop Date: 11/27/15 Status: OrderedrOPINIRole 5 mg oral tablet 5 mg 1 tabs, Oral, Bedtime (once a day), # 90 tabs, 0 Refill(s), Pharmacy: [facility] #[id number],1 tabs Oral Bedtime (once a day) Start Date: 09/04/15 Status: OrderedTylenol Extra Strength 1,000 mg, Oral, TID, as needed for pain, 0 Refill(s) Start Date: 02/14/15 Status: Ordered Results No data available for this section Immunizations Vaccine Date Refusal Reason influenza virus vaccine, inactivated1 04/19/15 pneumococcal 23-polyvalent vaccine2 05/04/15 1Result Comment: [04/19/2015] High-Dose [id number] History: Bettye Javier Procedures Procedure Date Related Diagnosis Body Site Destruction (eg, laser surgery, electrosurgery, 12/20/15 cryosurgery, chemosurgery, surgical curettement), of benign lesions other than skin tags or cutaneous vascular proliferative lesions; up to 14 lesions Dual-energy X-ray absorptiometry (DXA), bone 12/12/10 density study, 1 or more sites; axial skeleton (eg, hips, pelvis, spine) Social History Social History Type Response Smoking Status Former smoker Assessment and Plan Extracted from: Title: Office Visit Note Author: Kevin Stewart DO Date: 12/20/15 Assessment/Plan 1.Essential tremor 1. Continue with ropinirole 5 mg daily. 2. Referral to neurologist for farther evaluation and recommendations. 3. Previous labs reviewed with the patient, all questions were answered. Ordered: Office Visit Level 3 Est 71870 2.Inflamed seborrheic keratosis 1. A total of 3 seborrheic keratosis were treated today with cryotherapy. 2. Regarding the redness and irritation to the tip of her nose, she was referred to fig washer for farther evaluation and recommendations. Ordered: Destruction, Of Flat Warts, Molluscum Contagiosum, Or Milia; Up To 14 Lesions 56725 Office Visit Level 3 Est 94179 CKD (chronic kidney disease) stage 3, GFR 30-59 ml/min 1. Her renal function is consistent with CKD stage III. 2. Recommended rechecking basic metabolic profile in 3 months from previous. 3. Avoid NSAIDs. 4. Follow-up if worsening presentation. Normocytic anemia 1. Labs are reviewed with the patient, her hemoglobin has improved from 10. 8-11.2. 2. Recheck CBC in 3 months.
--- OUTSIDE RECORDS SUMMARY | 2017-04-07 12:23 | External Medical Summary | Referral Summary ---
:1930 Author Organization [facility] [place] [phone] Care Team Providers Name Role Phone Kevin Stewart Primary Care Physician Encounter VC Date(s): 05/15/15 - 05/15/15 [facility] [address] [place] [phone] [place] Discharge [...] Daily, # 90 tabs, 1 Refill(s), Pharmacy: [facility] # [id number], PT REQUESTS MEDICATION DELIVERY, 1 tabs Oral Daily,x90 days Start Date: 05/31/15 Stop Date: 11/27/15 Status: OrderedrOPINIRole 5 mg oral tablet 5 mg 1 tabs, Oral, Bedtime (once a day), # 90 tabs, 0 Refill(s), Pharmacy: [facility] #[id number],1 tabs Oral Bedtime (once a day) Start Date: 09/04/15 Status: OrderedTylenol Extra Strength 1,000 mg, Oral, TID, as needed for pain, 0 Refill(s) Start Date: 02/14/15 Status: OrderedUltram 50 mg oral tablet 50 mg 1 tabs, Oral, q12hr, as needed for pain, # 30 tabs, 0 Refill(s) Start Date: 11/13/15 Stop Date: 12/13/15 Status: Ordered Results No data available for this section Immunizations Vaccine Date Refusal Reason influenza virus vaccine, inactivated1 04/19/15 pneumococcal 23-polyvalent vaccine2 05/04/15 1Result Comment: [04/19/2015] High-Dose [id number] History: Bettye Javier Procedures Procedure Date Related [...] completely. Ordered: Office Visit Level 4 Est 27721 Muscle weakness (generalized) Pathophysiology of this presentation, and differential diagnosis, discussed in detail with the patient. All questions were answered. 1. Continue with rehabilitation therapy. 2. Up with assistance only. 3. Recommended Lif[employer] application. Ordered: Office Visit Level 4 Est 20751 Noninfected skin tear of leg As above. Ordered: Office Visit Level 4 Est 95834 Restless legs syndrome (RLS) 1. Recommended giving her the ropinirole at 1800 hour instead of 2000. 2. Follow-up in a week for reevaluation. Ordered: Office Visit Level 4 Est 86634
--- OUTSIDE RECORDS SUMMARY | 2017-04-07 12:23 | External Medical Summary | Referral Summary ---
:1930 Author [facility] Address [address] [place] [address] [place] [phone] Care Team Providers Name Role Phone Kevin Stewart Primary Care Physician Encounter VC Date(s): 05/31/15 - 05/31/15 [facility] [address] [place] [phone] [place] Discharge Diagnosis: Benign essential tremor Discharge Diagnosis: Visit for wound care Discharge Diagnosis: Restless leg syndrome Discharge Disposition: 01-Home or Self Care Attending Physician: Kevin Stewart DO Admitting Physician: Kevin Stewart DO Vital Signs Most recent to oldest [Reference Range]: 1 Temperature Tympanic [36.6-38.1 degC] 36.5 degC *LOW* (05/31/15 9:25 AM) Peripheral Pulse Rate [60-100 bpm] 83 bpm (05/31/15 9:25 AM) Blood Pressure [90-140/60-90 mmHg] 122/70 mmHg (05/31/15 9:25 AM) Problem List Condition Effective Dates Status [...] 0 Refill(s ) Start Date: 05/31/15 Status: OrderedLipitor 20 mg oral tablet 20 mg 1 tabs, Oral, Daily, # 90 tabs, 0 Refill(s), Pharmacy: [facility] # [id number], 1 tabs Oral Daily,x90 days Start Date: 02/14/15 Stop Date: 05/15/15 Status: Orderedmetoprolol succinate 25 mg oral tablet, extended release 25 mg 1 tabs, Oral, Bedtime (once a day), # 30 tabs, 2 Refill(s), Pharmacy: [facility] #[id number] Start Date: 05/25/15 Status: OrderedPhysical Therapy Physical Therapy, See Instructions, Eval and treat for back pain and leg weakness., # 1 Each, 0 Refill(s) Start Date: 02/14/15 Status: OrderedProtonix 40 mg oral delayed release tablet 40 mg 1 tabs, Oral, Daily, # 90 tabs, 1 Refill(s), Pharmacy: [facility] # [id number], PT REQUESTS MEDICATION DELIVERY, 1 tabs Oral Daily,x90 days Start Date: 05/31/15 Stop Date: 11/27/15 Status: OrderedrOPINIRole 3 mg oral tablet 3 mg 1 tabs, Oral, Daily, # 90 tabs, 1 Refill(s), Pharmacy: [facility] # [id number], 1 tabs Oral Daily,x90 days Start Date: 05/31/15 Stop Date: 11/27/15 Status: OrderedTylenol Extra Strength 1,000 mg, Oral, TID, as needed for pain, 0 Refill(s) Start Date: 02/14/15 Status: Ordered Results No data available for this section Immunizations Vaccine Date Refusal Reason influenza virus vaccine, inactivated1 04/19/15 pneumococcal 23-polyvalent vaccine2 05/04/15 1Result Comment: [04/19/2015] High-Dose [id number] History: [place] Procedures Procedure Date Related Diagnosis Body Site Dual-energy X-ray absorptiometry (DXA), bone 12/12/10 density study, 1 or more sites; axial skeleton (eg, hips, pelvis, spine) Social History Social History Type Response Smoking Status Former smoker Assessment and Plan Extracted from: Title: Office Visit Note Author: Kevin Stewart DO Date: 05/31/15 Assessment/Plan Benign essential tremor 1. This is likely secondary to her restless leg syndrome. 2. Increase ropinirole to 3 mg daily. 3. Will we assess in one week. Ordered: Office Visit Level 4 Est 47260 Restless leg syndrome As above. Ordered: Office Visit Level 4 Est 24556 Visit for wound care 1. DuoDERM dressing was removed. 2. Dry dressing recommended. 3. Follow-up in a week for wound care, earlier if worsening presentation. Ordered: Office Visit Level 4 Est 79693 Orders: pantoprazole, 40 mg 1 tabs, Oral, Daily, # 90 tabs, 1 Refill(s), Pharmacy: [facility] #[id number], PT REQUESTS MEDICATION DELIVERY, 1 tabs Oral Daily,x90 days rOPINIRole, 3 mg 1 tabs, Oral, Daily, # 90 tabs, 1 Refill(s), Pharmacy: [facility] #[id number], 1 tabs Oral Daily,x90 days
--- OUTSIDE RECORDS SUMMARY | 2017-04-07 12:23 | External Medical Summary | Referral Summary ---
:1930 Author [facility] Address [address] [place] [address] [place] [phone] Care Team Providers Name Role Phone Kevin Stewart Primary Care Physician Encounter VC Date(s): 11/13/15 - 11/13/15 [facility] [address] [place] [phone] [place] Discharge Diagnosis: Neoplasm of skin of nose Discharge Disposition: 01-Home or Self Care Attending Physician: Kevin Stewart DO Admitting Physician: Kevin Stewart DO Vital Signs Most recent to oldest [Reference Range]: 1 Peripheral Pulse Rate [60-100 bpm] 80 bpm (11/13/15 11:06 AM) Blood Pressure [90-140/60-90 mmHg] 120/65 mmHg (11/13/15 11:06 AM) Problem List Condition Effective Dates Status [...] Daily, # 90 tabs, 1 Refill(s), Pharmacy: [facility] # [id number], PT REQUESTS MEDICATION DELIVERY, 1 tabs Oral Daily,x90 days Start Date: 05/31/15 Stop Date: 11/27/15 Status: OrderedrOPINIRole 5 mg oral tablet 5 mg 1 tabs, Oral, Bedtime (once a day), # 90 tabs, 0 Refill(s), Pharmacy: [facility] #[id number],1 tabs Oral Bedtime (once a day) Start Date: 09/04/15 Status: OrderedTylenol Extra Strength 1,000 mg, Oral, TID, as needed for pain, 0 Refill(s) Start Date: 02/14/15 Status: OrderedUltram 50 mg oral tablet 50 mg 1 tabs, Oral, q12hr, as needed for pain, # 30 tabs, 0 Refill(s) Start Date: 11/13/15 Stop Date: 12/13/15 Status: Ordered Results Hematology Most recent to oldest [Reference Range]: 1 WBC [4.8-10.8 10*3/uL] 4.6 10*3/uL *LOW* (11/13/15 12:07 PM) RBC [4.00-5.20] 3.45 *LOW* (11/13/15 12:07 PM) Hgb [12.0-16.0 gm/dL] 11.2 gm/dL *LOW* (11/13/15 12:07 PM) Hct [37.0-47.0 %] 34.9 % *LOW* (11/13/15 12:07 PM) MCV [82.0-99.0 fL] 101.2 fL *HI* (11/13/15 12:07 PM) MCH [27.0-32.0 pg] 32.5 pg *HI* (11/13/15 12:07 PM) MCHC [32.0-36.0 gm/dL] 32.1 gm/dL (11/13/15 12:07 PM) RDW [11.5-14.5 %] 13.5 % (11/13/15 12:07 PM) Platelet [150-400 10*3/uL] 334 10*3/uL (11/13/15 12:07 PM) MPV [8.8-14.8 fL] 8.9 fL (11/13/15: PM) Immature Granulocytes [0.0-1.0 %] 0.0 % (11/13/15: PM) Neutrophils [51-75 %] 63 % (11/13/15: PM) Lymphocytes [20-46 %] 24 % (11/13/15: PM) Monocytes [4-11 %] 12 % *HI* (11/13/15: PM) Eosinophils [0-4 %] 1 % (11/13/15: PM) Basophils [0-2 %] 0 % (11/13/15: PM) Neutro Absolute [1.90-7.00 10*3] 2.88 10*3 (11/13/15: PM) Lymph Absolute [0.80-3.30 10*3] 1.07 10*3 (11/13/15: PM) Pine Absolute [0.30-1.00 10*3] 0.55 10*3 (11/13/15: PM) Eos Absolute [0.00-0.50 10*3] 0.05 10*3 (11/13/15:07 PM) Baso Absolute [0.00-0.20 10*3] 0.01 10*3 (11/13/15 12: PM) Chemistry Most recent to oldest [Reference Range]: 1 Sodium Lvl [135-144 mEq/L] 140 mEq/L (11/13/15 12: PM) Potassium Lvl [3.5-5.2 mEq/L] 5.6 mEq/L *HI* (11/13/15: PM) Chloride [99-111 mEq/L] 105 mEq/L (11/13/15: PM) CO2 [22-31 mEq/L] 25 mEq/L (11/13/15:07 PM) AGAP [3-20] 10 (11/13/15: PM) BUN [10-20 mg/dL] 26 mg/dL *HI* (11/13/15 12:07 PM) Glucose Lvl [70-99 mg/dL] 98 mg/dL (11/13/15 12:07 PM) Creatinine Lvl [0.57-1.11 mg/dL] 1.32 mg/dL *HI* (11/13/15 12:07 PM) eGFR [>60 mL/min] 38 mL/min 1 *ABN* (11/13/15 12:07 PM) Calcium Lvl [8.9-10.5 mg/dL] 9.6 mg/dL (11/13/15 12:07 PM) Vitamin B12 Lvl [213-816 pg/mL] 394 pg/mL (11/13/15 12:07 PM) Folate Lvl [7.0-31.4 ng/mL] >20.0 ng/mL (11/13/15 12:07 PM) Chol [0-199 mg/dL] 280 mg/dL *HI* (11/13/15 12:07 PM) Trig [0-149 mg/dL] 93 mg/dL (11/13/15 12:07 PM) HDL [40-84 mg/dL] 72 mg/dL (11/13/15 12:07 PM) LDL [0-130 mg/dL] 189 mg/dL *HI* (11/13/15 12:07 PM) VLDL Cholesterol [0-28 mg/dL] 19 mg/dL (11/13/15 12:07 PM) Cardiac Risk [0.0-5.0] 3.9 (11/13/15 12:07 PM) TSH with Reflex Free T4 [0.35-4.94] 1.03 (11/13/15 12:07 PM) 1Result Comment: Multiply eGFR results by 1.21 for race. Immunizations Vaccine Date Refusal Reason influenza virus vaccine, inactivated1 04/19/15 pneumococcal 23-polyvalent vaccine2 05/04/15 1Result Comment: [04/19/2015] High-Dose [id number] History: Bettye Javier Procedures Procedure Date Related Diagnosis Body Site Dual-energy X-ray absorptiometry (DXA), bone 12/12/10 density study, 1 or more sites; axial skeleton (eg, hips, pelvis, spine) Social History Social History Type Response Smoking Status Former smoker Assessment and Plan Extracted from: Title: Office Visit Note Author: Kevin Stewart DO Date: 11/13/15 Assessment/Plan Anemia, macrocytic 1. Check his CBC today and treat accordingly. 2. Additionally, we will check B-12 and folic acid since I do not have records of these being checked the last time blood work was done. If she is deficient then we plan on replacing accordingly. Chronic back pain 1. Patient has several vertebral compression deformity involving the thoracic and lumbar vertebrae, clinically she does not appear to have any acute injury. He has significant history for advanced osteoporosis however given her poor renal function she's not a good candidate for bisphosphonates or poorly. 2. Continue with Tylenol at thousand milligrams every 8 hours as needed for pain. 3. Prescription was sent out for Ultram, 50 mg. One tablet at bedtime for pain not controlled by Tylenol. 4. Given her CKD stage III/stage IV I recommended avoidance of NSAIDs. Ordered: Basic Metabolic Panel CBC w/ Differential Office Visit Level 5 Est 71293 TSH with Reflex Free T4 CKD (chronic kidney disease) stage 3, GFR 30-59 ml/min 1. Renal function ordered today, report is pending. Ordered: Basic Metabolic Panel CBC w/ Differential TSH with Reflex Free T4 Dependent edema 1. Uncertain whether the edema is secondary to salt consumption, NSAIDs or other underlying cause. She does not appear to be in heart failure. 2. No significant edema appreciated today, will hold off on diuresis. Ordered: Basic Metabolic Panel CBC w/ Differential Office Visit Level 5 Est 75000 TSH with Reflex Free T4 Essential tremor 1. Worsening essential tremor could be secondary to B-12 deficiency. Lab is pending. 2. We may consider titrating her ropinirole if her tremors do not improve. Fatigue 1. Her fatigue could be multifactorial. 2. Lab work as described above. Additionally we will check her TSH. Ordered: Office Visit Level 5 Est 72034 Vitamin B12 and Folate General medical exam 1. This is a complex patient with multiple health complaints today. Additionally she wanted her lipids checked. Lab is pending. She has history of mixed hyperlipidemia. Ordered: Lipid Panel Left trigger finger 1. I recommended joshua taping the second and third digit of the left hand to help with the function of flexion and extension. She is reluctant to consider referral to a hand surgeon at this time. If she has worsening presentation then we plan on referring her to the hand surgeon in [place]. Ordered: Office Visit Level 5 Est 95783 Neoplasm of skin of nose, Neoplasm of uncertain behavior of skin 1. She has mild erythema along the scar on the right side of the nose from her skin graft. 2. If this becomes worse and we plan on doing a skin biopsy or referring her to dermatology. 3. She would like to hold off on any intervention at this time. Ordered: Office Visit Level 5 Est 04732 Orders: traMADol, 50 mg 1 tabs, Oral, q12hr, as needed for pain, # 30 tabs, 0 Refill(s)
--- OUTSIDE RECORDS SUMMARY | 2017-04-07 12:23 | External Medical Summary | Referral Summary ---
:1930 Author [facility] Address [address] [place] [address] [place] [phone] Care Team Providers Name Role Phone Kevin Stewart Primary Care Physician Encounter VC Date(s): 02/14/15 - 02/14/15 [facility] [address] [place] [phone] Discharge Disposition: 01-Home or Self Care Attending Physician: Art Doran MD Admitting Physician: Art Doran MD Vital Signs Most recent to oldest [Reference Range]: 1 Blood Pressure [90-140/60-90 mmHg] 140/80 mmHg (02/14/15 8:24 AM) Problem List Condition Effective Dates Status [...] Daily, # 90 tabs, 1 Refill(s), Pharmacy: [facility] # [id number], PT REQUESTS MEDICATION DELIVERY, 1 tabs Oral Daily,x90 days Start Date: 05/31/15 Stop Date: 11/27/15 Status: OrderedrOPINIRole 1 mg oral tablet 1 mg 1 tabs, Oral, Daily, Take with 3 mg pill., # 30 tabs, 0 Refill(s), Pharmacy : [facility] #[id number], 1 tabs Oral Daily,Instr:Take with 3 mg pill. Start Date: 08/07/15 Status: OrderedrOPINIRole 3 mg oral tablet 3 mg 1 tabs, Oral, Daily, # 90 tabs, 1 Refill(s), Pharmacy: [facility] # [id number], 1 tabs Oral Daily,x90 days Start Date: 05/31/15 Stop Date: 11/27/15 Status: OrderedTylenol Extra Strength 1,000 mg, Oral, TID, as needed for pain, 0 Refill(s) Start Date: 02/14/15 Status: Ordered Results No data available for this section Immunizations Vaccine Date Refusal Reason influenza virus vaccine, inactivated1 04/19/15 pneumococcal 23-polyvalent vaccine2 05/04/15 1Result Comment: [04/19/2015] High-Dose [id number] History: Bettye Javier Procedures Procedure Date Related Diagnosis Body Site Dual-energy X-ray absorptiometry (DXA), bone 12/12/10 density study, 1 or more sites; axial skeleton (eg, hips, pelvis, spine) Social History Social History Type Response Smoking Status Former smoker Assessment and Plan Extracted from: Title: Ambulatory Patient Education Author: Art Doran MD Date: Allergy Allergic Rhinitis Allergic rhinitis is when the mucous membranes in the nose respond to allergens. Allergens are particles in the air that cause your body to have an allergic reaction. This causes you to release allergic antibodies. Through a chain of events, these eventually cause you to release histamine into the blood stream. Although meant to protect the body, it is this release of histamine that causes your discom fort, such as frequent sneezing, congestion, and an itchy, runny nose. CAUSES Seasonal allergic rhinitis (hay fever ) is caused by pollen allergens that may come from grasses, trees, and weeds. Year-round allergic rhinitis (perennial allergic rhinitis ) is caused by allergens suc h as house dust mites, pet dander, and mold spores. SYMPTOMS Nasal stuffiness (congestion ). Itchy, runny nose with sneezing and tearing of the eyes. DIAGNOSIS Your health care provider can help you determine the allergen or allergens that trigger your symptoms. If you and your health care provider are unable to determine the allergen, skin or blood testing may be used. TREATMENT Allergic Rhinitis does not have a cure, but it can be controlled by: Medicines and allergy shots (immunotherapy ). Avoiding the allergen. Hay fever may often be treated with antihistamines in pill or nasal spray forms. Antihistamines block the effects of histamine. There are over-the- counter medicines that may help with nasal congestion a nd swelling around the eyes. Check with your health care provider before taking or giving this medicine. If avoiding the allergen or the medicine prescribed do not work, there are many new medicines your health care provider can prescribe. Stronger medicine may be used if initial measures are ineffective. Desensitizing injections can be used if medicine and avoidance does not work. Desensitization is when a patient is given ongoing shots until the body becomes less sensitive to the allergen. Make sure yo u follow up with your health care provider if problems continue. HOME CARE INSTRUCTIONS It is not possible to completely avoid allergens, but you can reduce your symptoms by taking steps to limit your exposure to them. It helps to know exactly what you are allergic to so that you can avoid your specific triggers. SEEK MEDICAL CARE IF: You have a fever. You develop a cough that does not stop easily (persistent ). You have shortness of breath. You start wheezing. Symptoms interfere with normal daily activities. Document Released: 04/08/2002 Document Revised: 05/04/2014 Document Reviewed: 03/21/2014 [facility] Patient Information [address] [facility]. No follow up information was provided. Extracted from: Title: Office Visit Note Author: Art Doran MD Date: 02/14/15 Assessment/Plan Accidental fall The patient's issue is nearly or completely resolved. There is no further issues or testing desired by them at this time. Denies pain now. Acute leg pain Refuses xrays. Willingto try physical therapy. Script and directions given. Adult idiopathic generalized osteoporosis This issue is stable and appropriate refills, lab, and f/u have been discussed. Refuses dxa. Allergic rhinitis This issue is stable and appropriate refills, lab, and f/u have been discussed. Blood pressure elevated This issue is stable and appropriate refills, lab, and f/u have been discussed. The patient reports their blood pressure has been stable at home and is not having any sign ificant or related problems. There has been no chest pain, chest pressure, soa/ phan. Chronic kidney disease (CKD) This issue is stable and appropriate refills, lab, and f/u have been discussed. No nsaids. GERD without esophagitis This issue is stable and appropriate refills, lab, and f/u have been discussed. Hyperlipidemia This issue is stable and appropriate refills, lab, and f/u have been discussed. Declines lab at this time. Parkinson's disease This issue is stable and appropriate refills, lab, and f/ u have been discussed. Restless legs syndrome (RLS) This issue is stable and appropriate refills, lab, and f/u have been discussed. Orders: atorvastatin, 20 mg 1 tabs, Oral, Daily, # 90 tabs, 0 Refill(s), Pharmacy: [facility] #[id number], 1 tabs Oral Daily,x90 days cetirizine, 10 mg, Oral, Daily, X 90 days, # 90 tabs, 0 Refill(s), Pharmacy: [facility] #[id number], 10 mg Oral Daily,x90 days [facility] Medication, Physical Therapy, See Instructions, Eval and treat for back pain and leg weakness., # 1 Each, 0 Refill(s) rOPINIRole, 1 mg 1 tabs, Oral, Daily, # 90 tabs, 0 Refill(s), Pharmacy: [facility] #[id number], 1 tabs Oral Daily,x90 days
--- OUTSIDE RECORDS SUMMARY | 2017-04-07 12:23 | External Medical Summary | Referral Summary ---
:1930 Author Organization [facility] [place] Address [address] [place] [address] [place] [phone] Care Team Providers Name Role Phone Kevin Stewart Primary Care Physician Encounter VC Date(s): 07/26/15 - 07/26/15 [facility] [address] [place] [phone] [place] Discharge Diagnosis: Chronic kidney disease (CKD) Discharge Disposition: 01-Home or Self Care Attending Physician: Jarett Casey APRN Admitting Physician: Jarett Casey APRN Vital Signs Most recent to oldest [Reference Range]: 1 Peripheral Pulse Rate [60-100 bpm] 76 bpm (07/26/15 10:08 AM) Respiratory Rate [14-20 br/min] 18 br/min (07/26/15 10:08 AM) Blood Pressure [90-140/60-90 mmHg] 128/78 mmHg (07/26/15 10:08 AM) SpO2 98 % (07/26/15 10:08 AM) Problem List Condition Effective Dates Status [...] Daily, # 90 tabs, 1 Refill(s), Pharmacy: [facility] # [id number], PT REQUESTS MEDICATION DELIVERY, 1 tabs Oral Daily,x90 days Start Date: 05/31/15 Stop Date: 11/27/15 Status: OrderedrOPINIRole 3 mg oral tablet 3 mg 1 tabs, Oral, Daily, # 90 tabs, 1 Refill(s), Pharmacy: [facility] # [id number], 1 tabs Oral Daily,x90 days Start Date: 05/31/15 Stop Date: 11/27/15 Status: OrderedTylenol Extra Strength 1,000 mg, Oral, TID, as needed for pain, 0 Refill(s) Start Date: 02/14/15 Status: Ordered Results Hematology Most recent to oldest [Reference Range]: 1 WBC [4.8-10.8 10*3/uL] 5.4 10*3/uL (07/26/15 11:10 AM) RBC [4.00-5.20] 3.38 *LOW* (07/26/15 11:10 AM) Hgb [12.0-16.0 gm/dL] 10.8 gm/dL *LOW* (07/26/15 11:10 AM) Hct [37.0-47.0 %] 33.6 % *LOW* (07/26/15 11:10 AM) MCV [82.0-99.0 fL] 99.4 fL *HI* (07/26/15 11:10 AM) MCH [27.0-32.0 pg] 32.0 pg (07/26/15 11:10 AM) MCHC [32.0-36.0 gm/dL] 32.1 gm/dL (07/26/15 11:10 AM) RDW [11.5-14.5 %] 13.8 % (07/26/15 11:10 AM) Platelet [150-400 10*3/uL] 455 10*3/uL *HI* (07/26/15 11:10 AM) MPV [8.8-14.8 fL] 8.5 fL *LOW* (07/26/15 11:10 AM) Immature Granulocytes [0.0-1.0 %] 0.2 % (07/26/15 11:10 AM) Neutrophils [51-75 %] 73 % (07/26/15 11:10 AM) Lymphocytes [20-46 %] 17 % *LOW* (07/26/15 11:10 AM) Monocytes [4-11 %] 9 % (07/26/15 11:10 AM) Eosinophils [0-4 %] 1 % (07/26/15 11:10 AM) Basophils [0-2 %] 0 % (07/26/15 11:10 AM) Neutro Absolute [1.90-7.00 10*3] 3.93 10*3 (07/26/15 11:10 AM) Lymph Absolute [0.80-3.30 10*3] 0.89 10*3 (07/26/15 11:10 AM) [place] Absolute [0.30-1.00 10*3] 0.47 10*3 (07/26/15 11:10 AM) Eos Absolute [0.00-0.50 10*3] 0.05 10*3 (07/26/15 11:10 AM) Baso Absolute [0.00-0.20 10*3] 0.02 10*3 (07/26/15 11:10 AM) Chemistry Most recent to oldest [Reference Range]: 1 Sodium Lvl [135-144 mEq/L] 137 mEq/L (07/26/15 11:10 AM) Potassium Lvl [3.5-5.2 mEq/L] 4.3 mEq/L (07/26/15 11:10 AM) Chloride [99-111 mEq/L] 104 mEq/L (07/26/15 11:10 AM) CO2 [22-31 mEq/L] 26 mEq/L (07/26/15 11:10 AM) AGAP [3-20] 7 (07/26/15 11:10 AM) BUN [10-20 mg/dL] 20 mg/dL (07/26/15 11:10 AM) Glucose Lvl [70-99 mg/dL] 93 mg/dL (07/26/15 11:10 AM) Creatinine Lvl [0.57-1.11 mg/dL] 0.86 mg/dL (07/26/15 11:10 AM) eGFR [>60 mL/min] >60 mL/min 1 (07/26/15 11:10 AM) Calcium Lvl [8.9-10.5 mg/dL] 9.4 mg/dL (07/26/15 11:10 AM) 1Result Comment: Multiply eGFR results by 1.21 for race.Urinalysis Most recent to oldest [Reference Range]: 1 UA Color Yellow (07/26/15 10:20 AM) UA Appear Clear (07/26/15 10:20 AM) UA pH [5.0-8.0] 5.5 (07/26/15 10:20 AM) UA Leuk Est [Negative] Pos 2+ *ABN* (07/26/15 10:20 AM) UA Nitrite [Negative] Negative (07/26/15 10:20 AM) UA Protein [Negative] Negative (07/26/15 10:20 AM) UA Glucose [Negative] Negative (07/26/15 10:20 AM) UA Ketones [Negative] Negative (07/26/15 10:20 AM) UA Urobilinogen [<=1.0 mg/dL] 0.2 mg/dL (07/26/15 10:20 AM) UA Bili [Negative] Negative (07/26/15 10:20 AM) UA Blood [Negative] Pos 1+ *ABN* (07/26/15 10:20 AM) UA Spec Grav [1.003-1.030] 1.010 (07/26/15 10:20 AM) Type Clean Catch (07/26/15 10:20 AM) UA WBC [0-4] 10-20 *ABN* (07/26/15 10:20 AM) UA RBC [0-2] None seen (07/26/15 10:20 AM) Epithelial Cells 10-20 (07/26/15 10:20 AM) UA Bacteria Occasional *ABN* (07/26/15 10:20 AM) Immunizations Vaccine Date Refusal Reason influenza virus vaccine, inactivated1 04/19/15 pneumococcal 23-polyvalent vaccine2 05/04/15 1Result Comment: [04/19/2015] High-Dose [id number] History: [place] Procedures Procedure Date Related Diagnosis Body Site Dual-energy X-ray absorptiometry (DXA), bone 12/12/10 density study, 1 or more sites; axial skeleton (eg, hips, pelvis, spine) Social History Social History Type Response Smoking Status Former smoker Assessment and Plan No data available for this section
--- OUTSIDE RECORDS SUMMARY | 2017-04-07 12:23 | External Medical Summary | Referral Summary ---
:1930 Author [facility] Address [address] [place] [address] [place] [phone] Care Team Providers Name Role Phone Kevin Stewart Primary Care Physician Encounter VC Date(s): 03/08/15 - 03/08/15 [facility] [place] [phone] [place] Discharge Diagnosis: Hip pain Discharge Diagnosis: Iliotibial band tendinitis of right side Discharge Diagnosis: Trigger point Discharge Diagnosis: Ischial bursitis of right side Discharge Disposition: 01-Home or Self Care Attending Physician: Kevin Stewart DO Admitting Physician: Kevin Stewart DO Referring Physician: Kevin Stewart DO Vital Signs Most recent to oldest [Reference Range]: 1 Temperature Tympanic [36.6-38.1 degC] 36.6 degC (03/08/15 1:03 PM) Peripheral Pulse Rate [60-100 bpm] 80 bpm (03/08/15 1:03 PM) Blood Pressure [90-140/60-90 mmHg] 128/62 mmHg (03/08/15 1:03 PM) Problem List Condition Effective Dates Status [...] Daily, # 90 tabs, 1 Refill(s), Pharmacy: [facility] # [id number], PT REQUESTS MEDICATION DELIVERY, 1 tabs Oral Daily,x90 days Start Date: 05/31/15 Stop Date: 11/27/15 Status: OrderedrOPINIRole 5 mg oral tablet 5 mg 1 tabs, Oral, Bedtime (once a day), # 90 tabs, 0 Refill(s), Pharmacy: [facility] #[id number],1 tabs Oral Bedtime (once a day) Start Date: 09/04/15 Status: OrderedTylenol Extra Strength 1,000 mg, Oral, TID, as needed for pain, 0 Refill(s) Start Date: 02/14/15 Status: Ordered Results No data available for this section Immunizations Vaccine Date Refusal Reason influenza virus vaccine, inactivated1 04/19/15 pneumococcal 23-polyvalent vaccine2 05/04/15 1Result Comment: [04/19/2015] High-Dose [id number] History: Bettye Javier Procedures Procedure Date Related Diagnosis Body Site Dual-energy X-ray absorptiometry (DXA), bone 12/12/10 density study, 1 or more sites; axial skeleton (eg, hips, pelvis, spine) Social History Social History Type Response Smoking Status Former smoker Assessment and Plan Extracted from: Title: Office Visit Note Author: Kevin Stewart DO Date: 03/08/15 Assessment/Plan Hip pain 1. This appears to be mainly tendinitis and trigger points related. Iliotibial band tendinitis of right side 1. Since her symptoms have not improved with conservative treatment, trigger point injection recommended to the iliotibial band, initial tuberosity and over the piriformis muscle, patient was agreeable. Procedure: Trigger point injection Indication: Symptomatic Medication: 80 mg of Kenalog, 4 mL of Marcaine Description: Following informed consent, the patient was laid in the left lateral recumbent position. Areas for injection were identified, total of 3 trigger point sites were cleansed. Using the combination of Marcaine and Kenalog 3 trigger point injections were done today. Patient tolerated procedure well, she had some improvement in her discomfort prior to dismissal. 2. If symptoms do not improve then she was advised to follow up for reevaluation. We discussed adding pain medication however she would like to hold off on any medicine other than [id number] for now. Ischial bursitis of right side As above. Trigger point As above.
--- OUTSIDE RECORDS SUMMARY | 2017-04-07 12:23 | External Medical Summary | Referral Summary ---
:1930 Author [facility] Address [address] [place] [address] [place] [phone] Care Team Providers Name Role Phone Kevin Stewart Primary Care Physician Encounter VC [facility] [id number] Date(s): 07/07/15 - 07/07/15 [facility] [place] [phone] [place] Discharge Diagnosis: Trigger point Discharge Diagnosis: Osteoporosis Discharge Diagnosis: Acute low back pain Discharge Diagnosis: Posterior pain of right hip Discharge Diagnosis: Vertebral compression fracture Discharge Disposition: 01-Home or Self Care Attending Physician: Kevin Stewart DO Admitting Physician: Kevin Stewart DO Vital Signs Most recent to oldest [Reference Range]: 1 Temperature Tympanic [36.6-38.1 degC] 35.6 degC *LOW* (07/07/15 8:45 AM) Peripheral Pulse Rate [60-100 bpm] 80 bpm (07/07/15 8:45 AM) Blood Pressure [90-140/60-90 mmHg] 104/72 mmHg (07/07/15 8:45 AM) Problem List Condition Effective Dates Status [...] Daily, # 90 tabs, 1 Refill(s), Pharmacy: [facility] # [id number], PT REQUESTS MEDICATION DELIVERY, 1 tabs Oral Daily,x90 days Start Date: 05/31/15 Stop Date: 11/27/15 Status: OrderedrOPINIRole 3 mg oral tablet 3 mg 1 tabs, Oral, Daily, # 90 tabs, 1 Refill(s), Pharmacy: [facility] # [id number], 1 tabs Oral Daily,x90 days Start Date: 05/31/15 Stop Date: 11/27/15 Status: OrderedTylenol Extra Strength 1,000 mg, Oral, TID, as needed for pain, 0 Refill(s) Start Date: 02/14/15 Status: Ordered Results No data available for this section Immunizations Vaccine Date Refusal Reason influenza virus vaccine, inactivated1 04/19/15 pneumococcal 23-polyvalent vaccine2 05/04/15 1Result Comment: [04/19/2015] High-Dose [id number] History: Bettye Javier Procedures Procedure Date Related Diagnosis Body Site Injection(s); single or multiple trigger 07/07/15 point(s), 3 or more muscle(s).. Dual-energy X-ray absorptiometry (DXA), bone 12/12/10 density study, 1 or more sites; axial skeleton (eg, hips, pelvis, spine) Social History Social History Type Response Smoking Status Former smoker Assessment and Plan Extracted from: Title: Multiple complaints visit Author: Kevin Stewart DO Date: 07/07/15 Assessment/Plan Acute low back pain 1. Imaging of the lumbar spine demonstrate significant osteoporosis with 3 compression fractures of the lumbar spine, the worst being at T9 level. These appear to be old in mirtha ure. This was discussed in detail with the patient, all questions answered. Ordered: Office Visit Level 5 Est 23398 Osteoporosis Pathophysiology of this presentation discussed in detail with the patient. All questions were answered. 1. DEXA scan ordered, report is pending. 2. If her DEXA scan demonstrated severe osteoporosis then we plan on getting her qualified for Reclast treatment. 3. We will discuss discontinuation of the pertinent pump inhibitor at next office visit. 4. Continue with calcium and vitamin D level replacement. Ordered: BD Bone Density DEXA Axial Skeleton Office Visit Level 5 Est 79248 Posterior pain of right hip 1. Her right posterior hip pain is likely muscular in nature. 3 trigger point sites identified, trigger point injection recommended to which she agreed. Ordered: Injection(S); Single Or Multiple Trigger Point(S), Three Or More Muscle(S) Trigger point Procedure: Trigger point injection Indication: Right hip pain secondary to trigger point tenderness Medication: One percent lidocaine 1 mL , Marcaine 1 mL, Kenalog 40 mg. Location: Right posterior hip Description: With the patient laid in the prone position, trigger point sore identified to the posterior right hip and demarcated. The area was cleansed with Betadine to create a sterile field. Using sterile techn ique, the combination of lidocaine, Marcaine and Kenalog was injected at 3 separate injection sites. A total of 1 mL was injected at each site. Patient tolerated treatment well, wound care instructions provided. Follow- up as needed. Ordered: Injection(S); Single Or Multiple Trigger Point(S), Three Or More Muscle(S) Office Visit Level 5 Est 65953 Vertebral compression fracture As above. Ordered: BD Bone Density DEXA Axial Skeleton Office Visit Level 5 Est [id number] Orders: BD Bone Density DEXA Axial Skeleton
--- OUTSIDE RECORDS SUMMARY | 2017-04-07 12:23 | External Medical Summary | Referral Summary ---
:1930 Author Organization [facility] [place] Address [address] [place] [address] [place] [phone] Care Team Providers Name Role Phone Kevin Stewart Primary Care Physician Encounter VC Date(s): 09/04/15 - 09/04/15 [facility] [place] [phone] [place] Discharge Disposition: 01-Home or Self Care Attending Physician: Kevin Stewart DO Admitting Physician: Kevin Stewart DO Vital Signs Most recent to oldest [Reference Range]: 1 Temperature Tympanic [36.6-38.1 degC] 36.8 degC (09/04/15 3:35 PM) Peripheral Pulse Rate [60-100 bpm] 88 bpm (09/04/15 3:35 PM) Blood Pressure [90-140/60-90 mmHg] 120/65 mmHg (09/04/15 3:35 PM) Problem List Condition Effective Dates Status [...] Daily, # 90 tabs, 1 Refill(s), Pharmacy: [facility] # [id number], PT REQUESTS MEDICATION DELIVERY, 1 tabs Oral Daily,x90 days Start Date: 05/31/15 Stop Date: 11/27/15 Status: OrderedrOPINIRole 5 mg oral tablet 5 mg 1 tabs, Oral, Bedtime (once a day), # 90 tabs, 0 Refill(s), Pharmacy: [facility] #[id number],1 tabs Oral Bedtime (once a day) Start Date: 09/04/15 Status: OrderedTylenol Extra Strength 1,000 mg, Oral, TID, as needed for pain, 0 Refill(s) Start Date: 02/14/15 Status: Ordered Results No data available for this section Immunizations Vaccine Date Refusal Reason influenza virus vaccine, inactivated1 04/19/15 pneumococcal 23-polyvalent vaccine2 05/04/15 1Result Comment: [04/19/2015] High-Dose [id number] History: Bettye Javier Procedures Procedure Date Related Diagnosis Body Site Dual-energy X-ray absorptiometry (DXA), bone 12/12/10 density study, 1 or more sites; axial skeleton (eg, hips, pelvis, spine) Social History Social History Type Response Smoking Status Former smoker Assessment and Plan Extracted from: Title: Office Visit Note Author: Kevin Stewart DO Date: 09/04/15 Assessment/Plan Chronic pain 1. Recommended scheduled Tylenol at thousand milligrams twice a day. 2. Follow-up if worsening presentation or no improvement. We may consider Tylenol 3. Restless leg syndrome 1. Increaseropiniroleto 5 mg daily. Ordered: Office Visit Level 4 Est [id number] Orders: rOPINIRole, 5 mg 1 tabs, Oral, Bedtime (once a day), # 90 tabs, 0 Refill(s), Pharmacy: [facility] #[id number], 1 tabs Oral Bedtime (once a day)
--- OUTSIDE RECORDS SUMMARY | 2017-04-07 12:23 | External Medical Summary | Referral Summary ---
:1930 Author Organization [facility] [place] [place] [phone] Care Team Providers Name Role Phone Kevin Stewart Primary Care Physician Encounter VC Date(s): 03/15/15 - 03/15/15 [facility] [place] [place] [phone] Discharge Diagnosis: Lumbar region somatic dysfunction Discharge Diagnosis: Right hip pain Discharge Diagnosis: Restless leg syndrome Discharge Diagnosis: Thoracic region somatic dysfunction Discharge Diagnosis: Essential tremor Discharge Disposition: 01-Home or Self Care Attending Physician: Kevin Stewart DO Admitting Physician: Kevin Stewart DO Vital Signs Most recent to oldest [Reference Range]: 1 Temperature Tympanic [36.6-38.1 degC] 36.2 degC *LOW* (03/15/15 9:01 AM) Peripheral Pulse Rate [60-100 bpm] 88 bpm (03/15/15 9:01 AM) Blood Pressure [90-140/60-90 mmHg] 144/70 mmHg *HI* (03/15/15 9:01 AM) Problem List Condition Effective Dates Status [...] # 90 tabs, 1 Refill(s), Pharmacy: [facility] # [id number], PT REQUESTS MEDICATION DELIVERY, 1 tabs Oral Daily,x90 days Start Date: 05/31/15 Stop Date: 11/27/15 Status: OrderedrOPINIRole 5 mg oral tablet 5 mg 1 tabs, Oral, Bedtime (once a day), # 90 tabs, 0 Refill(s), Pharmacy: [facility] #[id number],1 tabs Oral Bedtime (once a day) Start Date: 09/04/15 Status: OrderedTylenol Extra Strength 1,000 mg, Oral, TID, as needed for pain, 0 Refill(s) Start Date: 02/14/15 Status: Ordered Results No data available for this section Immunizations Vaccine Date Refusal Reason influenza virus vaccine, inactivated1 04/19/15 pneumococcal 23-polyvalent vaccine2 05/04/15 1Result Comment: [04/19/2015] High-Dose [id number] History: Bettye Javier Procedures Procedure Date Related Diagnosis Body Site Dual-energy X-ray absorptiometry (DXA), bone 12/12/10 density study, 1 or more sites; axial skeleton (eg, hips, pelvis, spine) Social History Social History Type Response Smoking Status Former smoker Assessment and Plan Extracted from: Title: Office Visit Note Author: Kevin Stewart DO Date: 03/15/15 Assessment/Plan Essential tremor Pathophysiology of this presentation, and differential diagnosis, discussed in detail with the patient. All questions were answered. 1. This appears to be benign essential tremors. 2. We'll increase the report to 2 mg daily, if no improvement then we may consider adding propranolol twice a day. 3. Follow-up if no improvement in 2 weeks' time. Ordered: Office Visit Level 4 Est 89712 Lumbar region somatic dysfunction 1. Osteopathic manipulation was done of the thoracic and lumbar spine with modalities to consist of soft tissue treatment and HVLA. Patient tolerated treatment we ll and had improvement in her discomfort and muscle tightness of her back prior to dismissal. 2. Follow-up as needed if she finds this type of therapy beneficial. Ordered: Office Visit Level 4 Est 63504 Osteopathic Manipulative Treatment (Omt); One To Two Body Regions Involved 89373 Restless leg syndrome Changes in her workup as above. Ordered: Office Visit Level 4 Est 42382 Right hip pain She appears to be doing well following the injection to her hip. Increase activity as tolerated. Ordered: Office Visit Level 4 Est 95573 Thoracic region somatic dysfunction As above. Ordered: Office Visit Level 4 Est 52244 Osteopathic Manipulative Treatment (Omt); One To Two Body Regions Involved 47372
--- OUTSIDE RECORDS SUMMARY | 2017-04-07 12:23 | External Medical Summary | Referral Summary ---
:1930 Author Organization [facility] [place] [place] [phone] Care Team Providers Name Role Phone Kevin Stewart Primary Care Physician Encounter VC Date(s): 03/31/15 - 03/31/15 [facility] [place] [place] [phone] [place] Discharge Diagnosis: Back pain, thoracic Discharge Diagnosis: Dysuria Discharge Diagnosis: Pelvic region somatic dysfunction Discharge Diagnosis: Somatic dysfunction of lower extremity Discharge Diagnosis: Lumbar region somatic dysfunction Discharge Diagnosis: Thoracic region somatic dysfunction Discharge Diagnosis: Restless leg syndrome Discharge Diagnosis: Acute lower UTI (urinary tract infection) Discharge Disposition: 01-Home or Self Care Attending Physician: Kevin Stewart DO Admitting Physician: Kevin Stewart DO Vital Signs Most recent to oldest [Reference Range]: 1 Temperature Tympanic [36.6-38.1 degC] 36.6 degC (03/31/15 8:03 AM) Peripheral Pulse Rate [60-100 bpm] 100 bpm (03/31/15 8:03 AM) Blood Pressure [90-140/60-90 mmHg] 115/65 mmHg (03/31/15 8:03 AM) Problem List Condition Effective Dates Status [...] Daily, # 90 tabs, 1 Refill(s), Pharmacy: [facility] # [id number], PT REQUESTS MEDICATION DELIVERY, 1 tabs Oral Daily,x90 days Start Date: 05/31/15 Stop Date: 11/27/15 Status: OrderedrOPINIRole 5 mg oral tablet 5 mg 1 tabs, Oral, Bedtime (once a day), # 90 tabs, 0 Refill(s), Pharmacy: [facility] #[id number],1 tabs Oral Bedtime (once a day) Start Date: 09/04/15 Status: OrderedTylenol Extra Strength 1,000 mg, Oral, TID, as needed for pain, 0 Refill(s) Start Date: 02/14/15 Status: Ordered Results Urinalysis Most recent to oldest [Reference Range]: 1 UA Color Yellow (03/31/15 8:45 AM) UA Appear Turbid *ABN* (03/31/15 8:45 AM) UA pH [5.0-8.0] 5.5 (03/31/15 8:45 AM) UA Leuk Est [Negative] Pos 3+ *ABN* (03/31/15 8:45 AM) UA Nitrite [Negative] Negative (03/31/15 8:45 AM) UA Protein [Negative] Pos 1+ *ABN* (03/31/15 8:45 AM) UA Glucose [Negative] Negative (03/31/15 8:45 AM) UA Ketones [Negative] Negative (03/31/15 8:45 AM) UA Urobilinogen [<1.0 mg/dL] 1.0 mg/dL (03/31/15 8:45 AM) UA Bili [Negative] Negative (03/31/15 8:45 AM) UA Blood [Negative] Pos 2+ *ABN* (03/31/15 8:45 AM) UA Spec Grav [1.003-1.030] 1.020 (03/31/15 8:45 AM) Type Voided (03/31/15 8:45 AM) UA WBC [0-4 /HPF] >50 /HPF *ABN* (03/31/15 8:45 AM) UA RBC [0-4] 20-50 *ABN* (03/31/15 8:45 AM) Epithelial Cells 10-20 (03/31/15 8:45 AM) UA Bacteria Numerous *ABN* (03/31/15 8:45 AM) Microbiology Reports TEST:Urine Culture STATUS:Auth (Verified) BODY SITE: SOURCE:Urine COLLECTED DATE/TIME:03/31/15 8:45 AMUrine CultureKlebsiella pneumoniae >100,000 cfu/ml ORGANISM:Klebsiella pneumoniae Immunizations Vaccine Date Refusal Reason influenza virus vaccine, inactivated1 04/19/15 pneumococcal 23-polyvalent vaccine2 05/04/15 1Result Comment: [04/19/2015] High-Dose [id number] History: Diller Procedures Procedure Date Related Diagnosis Body Site Dual-energy X-ray absorptiometry (DXA), bone 12/12/10 density study, 1 or more sites; axial skeleton (eg, hips, pelvis, spine) Social History Social History Type Response Smoking Status Former smoker Assessment and Plan Extracted from: Title: Office Visit Note Author: Kevin Stewart DO Date: 03/31/15 Assessment/Plan Acute lower UTI (urinary tract infection) 1. History and symptoms are consistent with urinary tract infection. 2. UA today, we will change therapy accordingly. 3. Bactrim double strength one tablet twice a day for 5 days. Ordered: Office Visit Level 4 Est 48356 Urinalysis with Culture if Indicated Back pain, thoracic 1. Clinical findings consistent with somatic dysfunction of the thoracic, lumbar, lumbosacral, bilateral pelvic and lower extremities to include the hamstrings. 2. Osteopathic manipulation was done to consist mainly of soft tissue treatment and muscle energy. No HVLA was done and this patient . She had improvement in her range of motion and discomfort of her back prior to dismissal. 3. Follow-up as needed if she finds this type of therapy beneficial. 4. Warm compression to her back as needed. Ordered: sulfamethoxazole-trimethoprim, 1 tabs, Oral, BID, X 5 days, # 10 tabs, 0 Refill(s), Pharmacy: [facility] #[id number] Office Visit Level 4 Est 17787 Dysuria As above Ordered: sulfamethoxazole-trimethoprim, 1 tabs, Oral, BID, X 5 days, # 10 tabs, 0 Refill(s), Pharmacy: [facility] #[id number] Office Visit Level 4 Est 93209 Lumbar region somatic dysfunction As above Ordered: Osteopathic Manipulative Treatment (Omt); Three To Four Body Regions Involved 19019 Pelvic region somatic dysfunction As above Ordered: Osteopathic Manipulative Treatment (Omt); Three To Four Body Regions Involved 48177 Restless leg syndrome Pathophysiology of this presentation, and differential diagnosis, discussed in detail with the patient. All questions were answered. 1. Continue with ropinirole 2 mg daily. 2. Follow-up if worsening presentation, or no improvement in the next couple of days. Ordered: sulfamethoxazole-trimethoprim, 1 tabs, Oral, BID, X 5 days, # 10 tabs, 0 Refill(s), Pharmacy: [facility] #[id number] Office Visit Level 4 Est 66982 Somatic dysfunction of lower extremity As above Ordered: Osteopathic Manipulative Treatment (Omt); Three To Four Body Regions Involved 81784 Thoracic region somatic dysfunction As above Ordered: Osteopathic Manipulative Treatment (Omt); Three To Four Body Regions Involved 92955 Orders: rOPINIRole, 2 mg 1 tabs, Oral, Daily, # 90 tabs, 3 Refill(s), Pharmacy: [facility] #[id number], 1 tabs Oral Daily,x90 days
--- OUTSIDE RECORDS SUMMARY | 2017-04-07 12:23 | External Medical Summary | Referral Summary ---
:1930 [facility] Address [address] [place] [address] [place] [phone] Care Team Providers Name Role Phone Kevin Stewart Primary Care Physician Encounter VC Date(s): 06/06/15 - 06/06/15 [facility] [place] [place] [phone] [place] Discharge Diagnosis: Medication management Discharge Diagnosis: Essential tremor Discharge Disposition: 01-Home or Self Care Attending Physician: Kevin Stewart DO Admitting Physician: Kevin Stewart DO Vital Signs Most recent to oldest [Reference Range]: 1 Temperature Tympanic [36.6-38.1 degC] 35.7 degC *LOW* (06/06/15 1:06 PM) Peripheral Pulse Rate [60-100 bpm] 70 bpm (06/06/15 1:06 PM) Blood Pressure [90-140/60-90 mmHg] 117/67 mmHg (06/06/15 1:06 PM) Problem List Condition Effective Dates Status [...] Daily, # 90 tabs, 1 Refill(s), Pharmacy: [facility] # [id number], PT REQUESTS MEDICATION DELIVERY, 1 tabs Oral Daily,x90 days Start Date: 05/31/15 Stop Date: 11/27/15 Status: OrderedrOPINIRole 3 mg oral tablet 3 mg 1 tabs, Oral, Daily, # 90 tabs, 1 Refill(s), Pharmacy: [facility] # [id number], 1 tabs Oral Daily,x90 days Start Date: 05/31/15 Stop Date: 11/27/15 Status: OrderedTylenol Extra Strength 1,000 mg, Oral, TID, as needed for pain, 0 Refill(s) Start Date: 02/14/15 Status: Ordered Results No data available for this section Immunizations Vaccine Date Refusal Reason influenza virus vaccine, inactivated1 04/19/15 pneumococcal 23-polyvalent vaccine2 05/04/15 1Result Comment: [04/19/2015] High-Dose [id number] History: Bettye Javier Procedures Procedure Date Related Diagnosis Body Site Dual-energy X-ray absorptiometry (DXA), bone 12/12/10 density study, 1 or more sites; axial skeleton (eg, hips, pelvis, spine) Social History Social History Type Response Smoking Status Former smoker Assessment and Plan Extracted from: Title: Office Visit Note Author: Kevin Stewart DO Date: 06/06/15 Assessment/Plan Essential tremor 1. Continue with ropinirole 3 mg daily. 2. Follow-up in 2 months for reevaluation, earlier if new concerns. Ordered: Office Visit Level 4 Est 17952 Medication management 1. Discontinue Lipitor and metoprolol. 2. Follow-up if the fatigue persist, we may consider checking her TSH and CBC. Ordered: Office Visit Level 4 Est 27975
--- OUTSIDE RECORDS SUMMARY | 2017-04-07 12:23 | External Medical Summary | Referral Summary ---
:1930 [facility] Address [address] [place] [address] [place] [phone] Care Team Providers Name Role Phone Kevin Stewart Primary Care Physician Encounter VC Date(s): 05/24/15 - 05/24/15 [facility] [place] [place] [phone] [place] Discharge [...] # 90 tabs, 1 Refill(s), Pharmacy: [facility] # [id number], PT REQUESTS MEDICATION DELIVERY, 1 tabs Oral Daily,x90 days Start Date: 05/31/15 Stop Date: 11/27/15 Status: OrderedrOPINIRole 5 mg oral tablet 5 mg 1 tabs, Oral, Bedtime (once a day), # 90 tabs, 0 Refill(s), Pharmacy: [facility] #[id number],1 tabs Oral Bedtime (once a day) Start [...] 23-polyvalent vaccine2 05/04/15 1Result Comment: [04/19/2015] High-Dose [id number] History: Bettye Javier Procedures Procedure Date Related [...] concerns. Ordered: Office Visit Level 3 Est 71346 Visit for wound care As above. Ordered: Office Visit Level 3 Est 49193
--- OUTSIDE RECORDS SUMMARY | 2017-04-07 12:23 | External Medical Summary | Referral Summary ---
:1930 [facility] Address [address] [place] [address] [place] [phone] Care Team Providers Name Role Phone Kevin Stewart Primary Care Physician Encounter VC Date(s): 02/27/15 - 02/27/15 [facility] [place] [place] [phone] [place] Discharge Diagnosis: Pain in right femur Discharge Diagnosis: Hip pain, right Discharge Disposition: 01-Home or Self Care Attending Physician: Kindra Tyson APRN Admitting Physician: Kindra Tyson APRN Vital Signs Most recent to oldest [Reference Range]: 1 Peripheral Pulse Rate [60-100 bpm] 72 bpm (02/27/15 10:46 AM) Blood Pressure [90-140/60-90 mmHg] 126/62 mmHg (02/27/15 10:46 AM) Problem List Condition Effective Dates Status [...] Daily, # 90 tabs, 1 Refill(s), Pharmacy: [facility] # [id number], PT REQUESTS MEDICATION DELIVERY, 1 tabs Oral Daily,x90 days Start Date: 05/31/15 Stop Date: 11/27/15 Status: OrderedrOPINIRole 5 mg oral tablet 5 mg 1 tabs, Oral, Bedtime (once a day), # 90 tabs, 0 Refill(s), Pharmacy: [facility] #[id number],1 tabs Oral Bedtime (once a day) Start Date: 09/04/15 Status: OrderedTylenol Extra Strength 1,000 mg, Oral, TID, as needed for pain, 0 Refill(s) Start Date: 02/14/15 Status: Ordered Results No data available for this section Immunizations Vaccine Date Refusal Reason influenza virus vaccine, inactivated1 04/19/15 pneumococcal 23-polyvalent vaccine2 05/04/15 1Result Comment: [04/19/2015] High-Dose [id number] History: Bettye Javier Procedures Procedure Date Related Diagnosis Body Site Dual-energy X-ray absorptiometry (DXA), bone 12/12/10 density study, 1 or more sites; axial skeleton (eg, hips, pelvis, spine) Social History Social History Type Response Smoking Status Former smoker Assessment and Plan No data available for this section
[2017-04-07] MEDS: NS 1,000 ML IV SCH ×2 (12:28→19:00)
--- NOTE | 2017-04-07 13:04 | CT Scan Report ---
EXAM: CT head/brain wo con LOCATION OF DICTATION: [place] HISTORY: Fall with head injury. COMPARISON: February 14, 2017 TECHNIQUE: Axial CT images through the head were performed without contrast. Iterative Reconstruction dose reducing technique was utilized. FINDINGS: The ventricles are of normal size, shape, and contour for the patient's age. There are scattered areas of low attenuation in the white matter which most likely represent changes from chronic microvascular ischemia. The brainstem, cerebellum, and cerebral hemispheres otherwise have a normal morphology and CT attenuation. There is no evidence of midline displacement. No hemorrhage, signs of acute territorial stroke, mass effect, mass lesions, or edema is evident. The visualized portions of the skull base, midface, and calvarium demonstrate no abnormality. The paranasal sinuses are well aerated and free of significant disease. The tympanic and mastoid cavities appear normal. IMPRESSION: 1. Age-related atrophy and moderate white matter disease likely secondary to chronic small vessel ischemia. No evidence for acute intracranial process or hemorrhage. .
--- NOTE | 2017-04-07 13:11 | CT Scan Report ---
EXAM: CT lumbar spine wo con LOCATION OF DICTATION: [place] HISTORY: fall, low back pain COMPARISON: Compared to the MRI of the lumbar spine dated May 02, 2016 TECHNIQUE: Axial noncontrast CT imaging of the lumbar spine was performed with coronal and sagittal two-dimensional reformats. Automated Exposure Control and Iterative Reconstruction dose reducing techniques were utilized. FINDINGS: The alignment of the lumbar spine is normal for the patient's age. There is no traumatic subluxation of the lumbar spine is evident. Chronic 50% compression fracture involving the superior endplate of L2 vertebra and chronic 25% compression fracture involving the superior endplate of L3 vertebra. These fractures are stable from the MRI dated April 2016. There are no new acute fractures identified. There is multilevel degenerative disease and facet arthropathy with vacuum disc phenomena demonstrated at the L3-4 through L5-S1 levels. There is central canal and neuroforaminal narrowing demonstrated at several levels worse at the L4-5 and L5-S1 levels. The paraspinal soft tissues and spinal canal are otherwise unremarkable in appearance. IMPRESSION: 1. Chronic appearing endplate fractures of L2 and L3 vertebra without evidence for acute fracture. 2. Moderate spondylosis with neuroforaminal and central canal narrowing worse at the L4-5 and L5-S1 levels similar to the prior MRI dated one year earlier. .
--- NOTE | 2017-04-07 13:16 | XRay Report ---
LOCATION OF DICTATION: [place] EXAM: XR chest 2V HISTORY: atrial fibrillation shortness of air chest tightness COMPARISON: Compared to the CT lumbar spine completed today and the chest x-ray dated February 14, 2017. FINDINGS: The heart size is normal. The mediastinal configuration is unremarkable. There are no consolidating opacities or pleural effusions. There is eventration or small diaphragmatic hernia demonstrated posteriorly on the right. There is no evidence for a pneumothorax. The osseous structures are within normal limits. IMPRESSION: No acute cardiopulmonary abnormality is identified. .
--- NOTE | 2017-04-07 14:42 | Cardiology History & Physical ---
History of Present Illness Chief complaint: fall HPI: Kelley is an 86-year-old female with no previous cardiac history of coronary disease or arrhythmias who was sent to the ED for increasing weaknessand multiple falls. She has fallen twice in the last 2 days, is currently in assisted living. She has a large skin tear on her left shoulder, does not believe she hit her head last 2 falls. She states she just hurts all over, increasing low back pain as well. She arrived with an irregularly irregular rhythm at 150. EKG shows atrial fibrillation, HR 118. She reports chronic cough and a bout of diarrhea about a week or more ago, otherwise denies recent illness , fever, chills, sore throat, chest pain, palpitations, SOA, N/V/D or dysuria. Review of Systems - Constitutional Constitutional: Present: fatigue, weakness. Absent: chills, fever(s) - EENMT Eyes: Absent: change in vision Balance: Present: vertigo Mouth/Throat: Present: sore throat - Cardiovascular Cardiovascular: Present: syncope. Absent: chest pain, palpitations, dyspnea on exertion, orthopnea, edema, heart murmur Vascular: Absent: pedal edema - Respiratory Respiratory: Present: cough. Absent: dyspnea, wheezing, chest congestion - Gastrointestinal Gastrointestinal: Absent: abdominal pain, diarrhea, nausea, vomiting - Genitourinary Genitourinary: Absent: dysuria - Musculoskeletal Musculoskeletal: Present: back pain - Integumentary/Breasts Integumentary: Absent: rash - Neurological Neurological: Present: dizziness - Endocrine Endocrine: Absent: palpitations [facility] Medical History Adult idiopathic generalized osteoporosis (Acute Medical) Allergic rhinitis (Acute Medical) Chronic kidney disease (Acute Medical) FH: HTN (hypertension) (Acute Medical) GERD (gastroesophageal reflux disease) (Acute Medical) Hyperlipemia (Acute Medical) Leg pain (Acute Medical) Parkinson disease (Acute Medical) Restless leg syndrome (Acute Medical) Surgical History: Nose Surgery due to skin cancer Family History: Family History Father Heart failure Mother High cholesterol Heart attack - Social History Smoking status: Former smoker Substance use type: does not use Alcohol intake frequency: does not drink Housing: assisted living facility Household members: none Current occupational status: retired Current residence: Assisted Living Medications Home Medications Medication Instructions Recorded Confirmed Type Acetaminophen 1,000 mg PO TID #0 08/08/16 04/07/17 History Carbidopa/Levodopa [Carbidopa-Levo 1.5 tab PO TID/E #0 08/08/16 04/07/17 History 25-100 mg Odt] Ropinirole [Requip] 2 mg PO TID 02/14/17 04/07/17 History Tramadol [Ultram] 25 mg PO Q8H PRN 02/14/17 04/07/17 History Cholecalciferol (Vitamin D3) 1,000 unit PO DAILY 04/07/17 04/07/17 History [Vitamin D3] Omeprazole [Prilosec] 20 mg PO HS 04/07/17 04/07/17 History Allergies Allergy/AdvReac Type Severity Reaction Status Date / Time No Known Allergies Allergy Verified 04/07/17 11:38 Exam Vital signs: Temperature 97.8 F 04/07/17 11:28 Pulse Rate 94 04/07/17 12:30 Respiratory Rate 12 04/07/17 12:30 Blood Pressure 110/67 04/07/17 11:28 Pulse Oximetry 98 04/07/17 12:30 - Constitutional no acute distress, thin, cooperative - Routine HEENT Exam Head: Present: normocephalic ENT: Present: mucous membranes moist - Routine Neck Exam Absent: JVD, carotid bruit - Routine Chest/Breast/Axilla Exam Chest wall: Absent: tenderness, pacemaker - Routine Respiratory Exam Present: CTA bilaterally. Absent: rales, wheezes - Routine Cardiovascular Exam Present: tachycardia, irregularly irregular - Routine Abdominal Exam Present: soft, normoactive bowel sounds - Routine Extremities Exam Present: no edema - Routine Skin Exam Present: intact, dry, warm Comments: very thin and fragile skin with multiple skin tears - Routine Neurological Exam Present: alert, oriented X3 - Routine Psychiatric Exam Present: normal affect, normal thought process Results 04/08/17 04:26 04/08/17 04:26 Abnormal Lab Results 04/07/17 04/07/17 04/07/17 12:01 12:01 13:41 WBC 6.8 RBC 3.44 L Hgb 11.3 L Hct 35.8 L MCV 104.1 H MCH 32.8 MCHC 31.6 RDW Std Deviation 48.2 Plt Count 385 MPV 8.7 L Immature Gran % (Auto) 0.1 Neut % (Auto) 79.1 H Lymph % (Auto) 10.2 L [place] % (Auto) 9.4 H Eos % (Auto) 0.9 Baso % (Auto) 0.3 Neut # 5.4 Lymph # 0.7 L [place] # 0.6 Eos # 0.1 Baso # 0.0 Abs Immat Gran (auto) 0.01 Turbidity < 20 Sodium 139 Potassium 4.7 Chloride 104 Carbon Dioxide 25 Anion Gap 10 BUN 29.0 H Creatinine 1.1 GFR Calculation 47 BUN/Creatinine Ratio 26 Glucose 84 Calculated Osmolality 273 Calcium 9.7 Magnesium Total Bilirubin 0.80 Icterus Index < 2 AST 15 ALT 19 Alkaline Phosphatase 86 Troponin I 0.047 B-Natriuretic Peptide 609 H Total Protein 7.0 Albumin 4.0 Globulin 3.0 Albumin/Globulin Ratio 1.3 Specimen Hemolysis < 15 Ur Collection Type Urine, clean catch Urine Color Yellow Urine Clarity Clear Urine pH 5.0 Ur Specific [place] 1.015 Urine Protein Negative Urine Glucose (UA) Negative Urine Ketones Trace A Urine Occult Blood Trace-intact Urine Nitrate Negative Urine Bilirubin Negative Urine Urobilinogen 0.2 Ur Leukocyte Esterase Negative Urinalysis Comment Microscopic not ind. 04/08/17 04/08/17 04:26 04:26 WBC 5.5 RBC 3.04 L Hgb 9.9 L D Hct 32.1 L MCV 105.6 H MCH 32.6 MCHC 30.8 L RDW Std Deviation 49.0 Plt Count 357 MPV 8.7 L Immature Gran % (Auto) Neut % (Auto) Lymph % (Auto) [place] % (Auto) Eos % (Auto) Baso % (Auto) Neut # Lymph # [place] # Eos # Baso # Abs Immat Gran (auto) Turbidity < 20 Sodium 141 Potassium 4.6 Chloride 111 H D Carbon Dioxide 23 Anion Gap 7 BUN 27.0 H Creatinine 0.9 D GFR Calculation 59 BUN/Creatinine Ratio 30 H Glucose 68 Calculated Osmolality 274 Calcium 8.8 D Magnesium 2.1 Total Bilirubin Icterus Index < 2 AST ALT Alkaline Phosphatase Troponin I B-Natriuretic Peptide Total Protein Albumin Globulin Albumin/Globulin Ratio Specimen Hemolysis < 15 Ur Collection Type Urine Color Urine Clarity Urine pH Ur Specific [place] Urine Protein Urine Glucose (UA) Urine Ketones Urine Occult Blood Urine Nitrate Urine Bilirubin Urine Urobilinogen Ur Leukocyte Esterase Urinalysis Comment - Imaging and Cardiology Echo: report reviewed EKG results: image reviewed Imaging & Cardiology Narrative: Date of Exam: 04/07/17 Type of Exam(s): US echo doppler complete DATE OF PROCEDURE April 07, 2017 This is a two-dimensional echo with spectral Doppler, color-flow and M-mode. It was obtained in a patient with atrial fibrillation. Left atrial dimension is normal. Left ventricle end-diastolic dimension is normal. Left ventricle wall thickness is normal. LV systolic function is normal with ejection fraction of 65%. Right atrium is normal. Right ventricle is normal. Aortic root dimension is normal. Mitral valve annulus is calcified. Mitral valve leaflets are normal with mild mitral regurgitation. Aortic valve shows fibrocalcific changes with no stenosis or insufficiency. Tricuspid valve shows mild tricuspid regurgitation with estimated pulmonary artery systolic pressure of 33. Pulmonary valve shows no pulmonary insufficiency. There is no pericardial effusion. IMPRESSION 1. Normal LV systolic function with ejection fraction of 65%. 2. Mitral annulus calcification with mild mitral regurgitation. 3. Aortic sclerosis. 4. Mild tricuspid regurgitation with estimated pulmonary artery systolic pressure of 33. EKG interpretations - EKG EKG shows: atrial fibrillation (with RVR) Hospital Course This is a general summary of the patient's hospital course. For more details refer to the complete medical record. Hospital course: 04/07/17 AFib:Cardizem 180mg po daily, begin today, stop drip after 1 hour. - Start on Lovenox while here at 1mg/kg SQ BID. 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 - NPO after midnight for LIZZ/ DCCV tomorrow afternoon. Assessment and Plan (1) Atrial fibrillation with RVR Current visit: Yes Status: Acute Cardizem 180mg po daily, begin today, stop drip after 1 hour. - Start on Lovenox while here at 1mg/kg SQ BID. 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 - NPO after midnight for LIZZ/ DCCV tomorrow afternoon. (2) Essential (primary) hypertension Current visit: Yes Status: Acute (3) Mixed hyperlipidemia Current visit: Yes Status: Acute (4) Parkinson disease Current visit: Yes Status: Acute Continue Carbidopa/levadopa (5) Chronic kidney disease (CKD) Current visit: Yes Status: Acute - Attestation Attestation Narrative: 04/08/17 11:05 Recommendation After examining the patient I agree with the above assessment. I am involved in the formulation of the patient's plan of care.
[2017-04-07] MEDS: ENOXAPARIN 40 MG/0.4 ML INJECTION SQ SCH (15:53)
[2017-04-07] MEDS ORDERED: TRAMADOL 50 MG TABLET PO PRN (17:14)
[2017-04-07] MEDS ORDERED: ROPINIROLE 2 MG TABLET PO SCH (18:20)
[2017-04-07] MEDS ORDERED: ROPINIROLE 2 MG TABLET PO STA (18:21)
[2017-04-07] MEDS: ROPINIROLE 2 MG TABLET PO SCH (22:05)
[2017-04-07] MEDS: OMEPRAZOLE 20 MG CAPSULE PO SCH (22:05)
[2017-04-07] MEDS: ACETAMINOPHEN 500 MG TABLET PO SCH (22:05)
[2017-04-08] MEDS: NS 1,000 ML IV SCH ×2 (00:04→14:21)
[2017-04-08] MEDS: ENOXAPARIN 40 MG/0.4 ML INJECTION SQ SCH (01:21)
[2017-04-08] MEDS: ACETAMINOPHEN 500 MG TABLET PO SCH ×3 (08:30→20:42)
--- NOTE | 2017-04-08 08:34 | Echocardiogram ---
DATE OF PROCEDURE April 07, 2017 This is a two-dimensional echo with spectral Doppler, color-flow and M-mode. It was obtained in a patient with atrial fibrillation. Left atrial dimension is normal. Left ventricle end-diastolic dimension is normal. Left ventricle wall thickness is normal. LV systolic function is normal with ejection fraction of 65%. Right atrium is normal. Right ventricle is normal. Aortic root dimension is normal. Mitral valve annulus is calcified. Mitral valve leaflets are normal with mild mitral regurgitation. Aortic valve shows fibrocalcific changes with no stenosis or insufficiency. Tricuspid valve shows mild tricuspid regurgitation with estimated pulmonary artery systolic pressure of 33. Pulmonary valve shows no pulmonary insufficiency. There is no pericardial effusion. IMPRESSION 1. Normal LV systolic function with ejection fraction of 65%. 2. Mitral annulus calcification with mild mitral regurgitation. 3. Aortic sclerosis. 4. Mild tricuspid regurgitation with estimated pulmonary artery systolic pressure of 33. MTDD
--- NOTE | 2017-04-08 08:57 | Cardiology Progress Note ---
Subjective Principal diagnosis: AFib RVR <Mirian Joshi - 04/08/17 09:03> Interval history: Kelley is seen in her room in CCU in follow up for Atrial fibrillation. She is currently in a sinus rhythm and eating her breakfast. She denies chest pain, palpitations, dyspnea. <MadelynMirian Sanchez - 04/08/17 09:03> Exam Vital signs: Temperature 96.9 F 04/09/17 08:00 Pulse Rate 85 04/09/17 08:00 Respiratory Rate 16 04/09/17 08:00 Blood Pressure 107/75 04/09/17 08:00 Pulse Oximetry 95 04/09/17 08:00 <Niko Galdamez - 04/15/17 07:58> Temperature 97.6 F 04/08/17 04:11 Pulse Rate 71 04/08/17 04:12 Respiratory Rate 28 H 04/08/17 04:12 Blood Pressure 114/56 04/08/17 04:12 Pulse Oximetry 97 04/08/17 04:12 <MadelynMirian Sanchez - 04/08/17 09:03> - Constitutional no acute distress, thin, cooperative <Madelyn,Mirian 04/08/17 09:03> - Routine HEENT Exam Head: Present: normocephalic <MadelynMirian mahoney Laura 04/08/17 09:03> ENT: Present: mucous membranes moist <Madelyn,Mirian Sanchez 04/08/17 09:03> - Routine Neck Exam Absent: JVD, carotid bruit <MadelynMirian mahoney Laura 04/08/17 09:03> - Routine Chest/Breast/Axilla Exam Chest wall: Absent: tenderness <MadelynMirian mahoney Laura 04/08/17 09:03> - Routine Respiratory Exam Present: CTA bilaterally. Absent: rales, wheezes <MadelynMirian mahoney Laura 04/08/17 09:03> - Routine Cardiovascular Exam Present: RRR, no murmur. Absent: JVD <Mirian Joshi 04/08/17 09:03> - Routine Abdominal Exam Present: soft, normoactive bowel sounds <Mirian Joshi 04/08/17 09:03> - Routine Extremities Exam Present: no edema <Mirian Joshi 04/08/17 09:03> - Routine Skin Exam Present: intact, dry, warm, ecchymosis (skin tears) <Mirian Joshi 09:03> - Routine Neurological Exam Present: alert, oriented X3 <Mirian Joshi - 04/08/17 09:03> - Routine Psychiatric Exam Present: normal affect, normal thought process <Mirian Joshi 04/08/17 09: 03> - Urinary Catheter Management Straight Cath placed during this visit: no <Niko Galdamez - 04/15/17 07:58> yes <Mirian Joshi - 04/09/17 12:00> Insertion date: 04/07/17 <Mirian Joshi 04/08/17 09:03> Insertion time: 13:30 <Mirian Joshi 04/08/17 09:03> Progress Note-A&P - Time Spent With Patient Total time spent is greater than 50% in coordination of care (as documented) at patient's floor/unit and/or counseling patient: <Niko Galdamez - 04/15/17 07:58> Total time spent is greater than 50% in coordination of care (as documented) at patient's floor/unit and/or counseling patient: <Mirian Joshi 04/08/17 09:03> less than 15 minutes <Mirian Joshi - 04/09/17 12:00> - Attestation Attestation Narrative: Recommendation After examining the patient I agree with the above assessment. I am involved in the formulation of the patient's plan of care. <Karlo Galdamezsein - 04/15/17 07:58> (1) Atrial fibrillation with RVR Status: Acute (2) Essential (primary) hypertension Status: Acute (3) Mixed hyperlipidemia Status: Acute (4) Parkinson disease Status: Acute (5) Chronic kidney disease (CKD) Status: Acute <Karlo Galdamezsein - 04/15/17 07:58> (1) Atrial fibrillation with RVR Status: Acute Assessment and plan: Currently in Sinus. Start on Flecainide for antiarrhythmic therapy. Continue to monitor cardiac telemetry and repeat EKG tomorrow am. Patient is not a good candidate for chronic anticoagulation due to frequent falls. Will start on baby aspirin daily. Follow renal and electrolytes (2) Essential (primary) hypertension Status: Acute (3) Mixed hyperlipidemia Status: Acute (4) Parkinson disease Status: Acute (5) Chronic kidney disease (CKD) Status: Acute <Mirian Joshi - 04/09/17 12:00> Sepsis Assessment - Evaluation Sepsis screening result: No Definite Risk <Mirian Joshi - 04/08/17 09:03> Hospital Course Summary Disclaimer: The visit summary below is not to be considered part of the above Progress Note. <Niko Galdamez - 04/15/17 07:58> The visit summary below is not to be considered part of the above Progress Note. <Mirian Joshi - 04/08/17 09:03> Hospital Course: 04/07/17 AFib:Cardizem 180mg po daily, begin today, stop drip after 1 hour. - Start on Lovenox while here at 1mg/kg SQ BID. Patient is a NOT good candidate for alf anticoagulation due to her frequent falls at home. - NPO after midnight for LIZZ/ DCCV tomorrow afternoon. 04/08/17 09:00 AFib: Currently in Sinus. Start on Flecainide for antiarrhythmic therapy. Continue to monitor cardiac telemetry and repeat EKG tomorrow am. Patient is not a good candidate for chronic anticoagulation due to frequent falls. Will start on baby aspirin daily. Follow renal and electrolytes <Mirian Joshi - 04/08/17 09:03>
[2017-04-08] MEDS ORDERED: PANTOPRAZOLE 40 MG TABLET PO SCH (09:00)
[2017-04-08] MEDS: ENOXAPARIN 30 MG/0.3 ML INJECTION SQ SCH (09:10)
[2017-04-08] MEDS: FLECAINIDE 50 MG TABLET PO SCH ×2 (09:10→20:42)
[2017-04-08] MEDS: ROPINIROLE 2 MG TABLET PO SCH ×3 (09:10→20:42)
--- NOTE | 2017-04-08 09:10 | XRay Report ---
Indication: fluid boluses; possible overload PROCEDURE: XR chest 1V: Encounter: Initial Comparison: April 07, 2017 Findings: Chest is stable. No new infiltrates. No pleural effusion or pneumothorax. Heart size and mediastinal contours are unchanged. Pulmonary vascularity is stable. Overlying monitoring leads. Old right rib fractures. Impression: Stable chest without acute cardiopulmonary disease. .
[2017-04-08] MEDS: ASPIRIN *EC* 81 MG TABLET PO SCH (13:32)
[2017-04-08 16:27] VITALS: BMI 16.5
[2017-04-08] MEDS: OMEPRAZOLE 20 MG CAPSULE PO SCH (20:42)
[2017-04-09 08:12] VITALS: BP 107/75; PULSE 85; RESP 16; TEMP 96.9; O2SAT 95
[2017-04-09] MEDS: ACETAMINOPHEN 500 MG TABLET PO SCH (08:15)
[2017-04-09] MEDS: FLECAINIDE 50 MG TABLET PO SCH (08:15)
[2017-04-09] MEDS: ROPINIROLE 2 MG TABLET PO SCH (08:15)
[2017-04-09] MEDS: ASPIRIN *EC* 81 MG TABLET PO SCH (08:15)
[2017-04-09] MEDS: ENOXAPARIN 30 MG/0.3 ML INJECTION SQ SCH (08:17)
--- NOTE | 2017-04-09 12:04 | Discharge Summary ---
<Mirian Joshi - Last Filed: 04/09/17 12:00> Discharge Information Date of admission: 04/08/17 09:39 Anticipated date of discharge: 04/09/17 Attending Physician: Niko Galdamez MD Primary care physician: Lucero Torrez MD Consults: 04/08/17 10:03 Doctor [Physician Consult] [CONS] Routine Consulting Provider: Bettye Javier Reason For Exam: per request of ap, she is in [place] Ordering Provider has Notified Agricultural Science Professor: Yes 04/09/17 10:52 [facility] Consult [CONS] Routine Reason for consultation: Skin tears - Discharge Diagnosis (1) Atrial fibrillation with RVR Status: Acute (2) Essential (primary) hypertension Status: Acute (3) Mixed hyperlipidemia Status: Acute (4) Parkinson disease Status: Acute (5) Chronic kidney disease (CKD) Status: Acute - Laboratory Labs: 04/09/17 04:59 04/09/17 04:59 Laboratory Tests 04/07/17 04/07/17 04/07/17 12:01 12:01 13:41 WBC 6.8 RBC 3.44 L Hgb 11.3 L Hct 35.8 L MCV 104.1 H MCH 32.8 MCHC 31.6 RDW Std Deviation 48.2 Plt Count 385 MPV 8.7 L Immature Gran % (Auto) 0.1 Neut % (Auto) 79.1 H Lymph % (Auto) 10.2 L [place] % (Auto) 9.4 H Eos % (Auto) 0.9 Baso % (Auto) 0.3 Neut # 5.4 Lymph # 0.7 L [place] # 0.6 Eos # 0.1 Baso # 0.0 Abs Immat Gran (auto) 0.01 Turbidity < 20 Sodium 139 Potassium 4.7 Chloride 104 Carbon Dioxide 25 Anion Gap 10 BUN 29.0 H Creatinine 1.1 GFR Calculation 47 BUN/Creatinine Ratio 26 Glucose 84 Calculated Osmolality 273 Calcium 9.7 Magnesium Total Bilirubin 0.80 Icterus Index < 2 AST 15 ALT 19 Alkaline Phosphatase 86 Troponin I 0.047 B-Natriuretic Peptide 609 H Total Protein 7.0 Albumin 4.0 Globulin 3.0 Albumin/Globulin Ratio 1.3 TSH Specimen Hemolysis < 15 Ur Collection Type Urine, clean catch Urine Color Yellow Urine Clarity Clear Urine pH 5.0 Ur Specific [place] 1.015 Urine Protein Negative Urine Glucose (UA) Negative Urine Ketones Trace A Urine Occult Blood Trace-intact Urine Nitrate Negative Urine Bilirubin Negative Urine Urobilinogen 0.2 Ur Leukocyte Esterase Negative Urinalysis Comment Microscopic not ind. 04/08/17 04/08/17 04/08/17 04:26 04:26 04:26 WBC 5.5 RBC 3.04 L Hgb 9.9 L D Hct 32.1 L MCV 105.6 H MCH 32.6 MCHC 30.8 L RDW Std Deviation 49.0 Plt Count 357 MPV 8.7 L Immature Gran % (Auto) Neut % (Auto) Lymph % (Auto) [place] % (Auto) Eos % (Auto) Baso % (Auto) Neut # Lymph # [place] # Eos # Baso # Abs Immat Gran (auto) Turbidity < 20 Sodium 141 Potassium 4.6 Chloride 111 H D Carbon Dioxide 23 Anion Gap 7 BUN 27.0 H Creatinine 0.9 D GFR Calculation 59 BUN/Creatinine Ratio 30 H Glucose 68 Calculated Osmolality 274 Calcium 8.8 D Magnesium 2.1 Total Bilirubin Icterus Index < 2 AST ALT Alkaline Phosphatase Troponin I B-Natriuretic Peptide Total Protein Albumin Globulin Albumin/Globulin Ratio TSH 1.28 Specimen Hemolysis < 15 Ur Collection Type Urine Color Urine Clarity Urine pH Ur Specific [place] Urine Protein Urine Glucose (UA) Urine Ketones Urine Occult Blood Urine Nitrate Urine Bilirubin Urine Urobilinogen Ur Leukocyte Esterase Urinalysis Comment 04/09/17 04/09/17 04:59 04:59 WBC 6.1 RBC 2.99 L Hgb 9.8 L Hct 30.7 L MCV 102.7 H MCH 32.8 MCHC 31.9 RDW Std Deviation 46.3 Plt Count 373 MPV 9.1 L Immature Gran % (Auto) Neut % (Auto) Lymph % (Auto) [place] % (Auto) Eos % (Auto) Baso % (Auto) Neut # Lymph # [place] # Eos # Baso # Abs Immat Gran (auto) Turbidity < 20 Sodium 140 Potassium 4.4 Chloride 109 H Carbon Dioxide 23 Anion Gap 8 BUN 20.0 H Creatinine 0.8 GFR Calculation 68 BUN/Creatinine Ratio 25 Glucose 81 Calculated Osmolality 271 Calcium 9.4 Magnesium 2.1 Total Bilirubin Icterus Index < 2 AST ALT Alkaline Phosphatase Troponin I B-Natriuretic Peptide Total Protein Albumin Globulin Albumin/Globulin Ratio TSH Specimen Hemolysis < 15 Ur Collection Type Urine Color Urine Clarity Urine pH Ur Specific [place] Urine Protein Urine Glucose (UA) Urine Ketones Urine Occult Blood Urine Nitrate Urine Bilirubin Urine Urobilinogen Ur Leukocyte Esterase Urinalysis Comment - Radiology Radiology: Date of Exam: 04/07/17 Type of Exam(s): US echo doppler complete DATE OF PROCEDURE April 07, 2017 This is a two-dimensional echo with spectral Doppler, color-flow and M-mode. It was obtained in a patient with atrial fibrillation. Left atrial dimension is normal. Left ventricle end-diastolic dimension is normal. Left ventricle wall thickness is normal. LV systolic function is normal with ejection fraction of 65%. Right atrium is normal. Right ventricle is normal. Aortic root dimension is normal. Mitral valve annulus is calcified. Mitral valve leaflets are normal with mild mitral regurgitation. Aortic valve shows fibrocalcific changes with no stenosis or insufficiency. Tricuspid valve shows mild tricuspid regurgitation with estimated pulmonary artery systolic pressure of 33. Pulmonary valve shows no pulmonary insufficiency. There is no pericardial effusion. IMPRESSION 1. Normal LV systolic function with ejection fraction of 65%. 2. Mitral annulus calcification with mild mitral regurgitation. 3. Aortic sclerosis. 4. Mild tricuspid regurgitation with estimated pulmonary artery systolic pressure of 33. Date of Exam: 04/08/17 Ordering Provider: Nemo Hayes APRN Type of Exam(s): XR chest 1V Reason for Exam(s): fluid boluses; possible overload Indication: fluid boluses; possible overload PROCEDURE: XR chest 1V: Encounter: Initial Comparison: April 07, 2017 Findings: Chest is stable. No new infiltrates. No pleural effusion or pneumothorax. Heart size and mediastinal contours are unchanged. Pulmonary vascularity is stable. Overlying monitoring leads. Old right rib fractures. Impression: Stable chest without acute cardiopulmonary disease. History of Present Illness HPI: Kelley is an 86-year-old female with no previous cardiac history of coronary disease or arrhythmias who was sent to the ED for increasing weaknessand multiple falls. She has fallen twice in the last 2 days, is currently in assisted living. She has a large skin tear on her left shoulder, does not believe she hit her head last 2 falls. She states she just hurts all over, increasing low back pain as well. She arrived with an irregularly irregular rhythm at 150. EKG shows atrial fibrillation, HR 118. She reports chronic cough and a bout of diarrhea about a week or more ago, otherwise denies recent illness , fever, chills, sore throat, chest pain, palpitations, SOA, N/V/D or dysuria. Hospital Course This is a general summary of the patient's hospital course. For more details refer to the complete medical record. Hospital course: 04/07/17 AFib:Cardizem 180mg po daily, begin today, stop drip after 1 hour. - Start on Lovenox while here at 1mg/kg SQ BID. 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 - NPO after midnight for LIZZ/ DCCV tomorrow afternoon. 04/08/17 09:00 AFib: Currently in Sinus. Start on Flecainide for antiarrhythmic therapy. Continue to monitor cardiac telemetry and repeat EKG tomorrow am. Patient is not a good candidate for chronic anticoagulation due to frequent falls. Will start on baby aspirin daily. Follow renal and electrolytes 04/09/17 discharged to [facility] with appointment for outpatient follow up. Time spent with patient: less than 15 minutes DVT Prophylaxis: Lovenox Exam Vital signs: Temperature 96.9 F 04/09/17 08:00 Pulse Rate 85 04/09/17 08:00 Respiratory Rate 16 04/09/17 08:00 Blood Pressure 107/75 04/09/17 08:00 Pulse Oximetry 95 04/09/17 08:00 - Constitutional no acute distress, thin, cooperative - Routine HEENT Exam Head: Present: normocephalic ENT: Present: mucous membranes moist - Routine Neck Exam Absent: JVD, carotid bruit - Routine Chest/Breast/Axilla Exam Chest wall: Absent: tenderness - Routine Respiratory Exam Present: CTA bilaterally, diminished air movement. Absent: rales, wheezes - Routine Cardiovascular Exam Present: RRR, no murmur. Absent: JVD - Routine Abdominal Exam Present: soft, normoactive bowel sounds - Routine Extremities Exam Present: no edema - Routine Skin Exam Present: dry, warm, wounds (many skin tears) - Routine Neurological Exam Present: alert - Routine Psychiatric Exam Present: normal affect Results 04/09/17 04:59 04/09/17 04:59 CBC 04/09/17 Range/Units 04:59 WBC 6.1 (4.5-11.0) T/MM3 RBC 2.99 L (4.00-5.20) M/MM3 Hgb 9.8 L (12-16) GM/DL Hct 30.7 L (36-46) % Plt Count 373 (130-400) T/MM3 Comprehensive Metabolic Panel 04/09/17 Range/Units 04:59 Sodium 140 (134-144) MEQ/L Potassium 4.4 (3.6-5) MEQ/L Chloride 109 H (98-107) MEQ/L Carbon Dioxide 23 (22-30) MEQ/L BUN 20.0 H (7-17) MG/DL Creatinine 0.8 (0.7-1.2) MG/DL Glucose 81 (65-110) MG/DL Calcium 9.4 (8.4-10.2) MG/DL Intake and Output 04/08/17 04/09/17 04/09/17 22:59 06:59 14:59 Intake Total 50 / 50 117 / 117 Output Total 200 / 200 Balance 50 / 50 -83 / -83 Intake: Oral 50 / 50 117 / 117 Output: Urine 200 / 200 Other: Urine Appearance Clear Clear Clear Urine Color Yellow Pale Pale Yellow Urine Odor Normal # Voids 1 1 # Incontinent Voids 1 Weight 90 lb 2.705 oz 89 lb 15.178 oz Patient Weight 04/10/17 06:59 Weight 89 lb 15.178 oz - Imaging and Cardiology Echo: report reviewed EKG results: image reviewed - EKG Interpretation EKG: sinus rhythm (QT/QTc 362/410) Discharge Plan - Med Rec/Dispo Referrals/Follow Up: Lucero Torrez MD [Family Provider] - Niko Galdamez MD [Physician] - 04/24/17 1:00 pm Ja Instructions: A-fib (Atrial Fibrillation) (GEN) Prescriptions: New Flecainide [Tambocor] 50 mg PO Q12HR #60 tab Aspirin *EC* [Ecotrin] 81 mg PO DAILY #30 tab Continue Acetaminophen 1,000 mg PO TID #0 Carbidopa/Levodopa [Carbidopa-Levo 25-100 mg Odt] 1.5 tab PO TID/E #0 Ropinirole [Requip] 2 mg PO TID Tramadol [Ultram] 25 mg PO Q8H PRN PRN Reason: Pain Cholecalciferol (Vitamin D3) [Vitamin D3] 1,000 unit PO DAILY Omeprazole [Prilosec] 20 mg PO HS - Disposition 04 To [facility] Home/Facility <Niko Galdamez - Last Filed: 04/15/17 08:38> Discharge Information Date of admission: 04/08/17 09:39 Attending Physician: Niko Galdamez MD Primary care physician: Lucero Torrez MD Consults: 04/08/17 10:03 Doctor [Physician Consult] [CONS] Routine Consulting Provider: Bettye Javier Reason For Exam: per request of ap, she is in [place] Ordering Provider has Notified Agricultural Science Professor: Yes 04/09/17 10:52 [facility] Consult [CONS] Routine Reason for consultation: Skin tears - Discharge Diagnosis (1) Atrial fibrillation with RVR Status: Acute (2) Essential (primary) hypertension Status: Acute (3) Mixed hyperlipidemia Status: Acute (4) Parkinson disease Status: Acute (5) Chronic kidney disease (CKD) Status: Acute - Laboratory Labs: 04/09/17 04:59 04/09/17 04:59 Hospital Course This is a general summary of the patient's hospital course. For more details refer to the complete medical record. Exam Vital signs: Temperature 96.9 F 04/09/17 08:00 Pulse Rate 85 04/09/17 08:00 Respiratory Rate 16 04/09/17 08:00 Blood Pressure 107/75 04/09/17 08:00 Pulse Oximetry 95 04/09/17 08:00 Results 04/09/17 04:59 04/09/17 04:59 Discharge Plan - Med Rec/Dispo - Attestation Attestation Narrative: 04/15/17 08:38 Recommendation After examining the patient I agree with the above assessment. I am involved in the formulation of the patient's plan of care.
--- NOTE | 2017-04-09 12:18 | Extended Care Facility Orders ---
<Mirian Joshi - Last Filed: 04/09/17 12:15> Admission Orders Admit to:: [facility] Allergies/Adverse Reactions: Allergies No Known Allergies Allergy (Verified 04/07/17 11:38) Admitting Diagnosis: atrial fibrillation with rvr Admitting Physician: Niko Galdamez MD Attending Physician: Niko Galdamez MD Anticiapted Length of Stay: 30 days or less Rehab Potential: fair May use Facility Protocol or Standing Orders: Yes May have flu vaccine: Yes [facility] Certification: I certify that SNF services are required to be given on an Inpatient basis because of the patients need for detention care on a continuing basis for the condition(s) for which he/she received inpatient hospital services prior to his/her transfer to the SNF. SNF inpatient care is necessary for the following reasons Indication for [facility]: Med Admininistration - Additional Information In Event of Arrest: Do Not Start CPR Referrals: Niko Galdamez MD [Physician] - 04/24/17 1:00 pm Lucero Torrez MD [Family Provider] - <Niko Galdamez - Last Filed: 04/15/17 08:39> Admission Orders Admitting Diagnosis: atrial fibrillation with rvr Admitting Physician: Niko Galdamez MD Attending Physician: Niko Galdamez MD [facility] Certification: I certify that SNF services are required to be given on an Inpatient basis because of the patients need for detention care on a continuing basis for the condition(s) for which he/she received inpatient hospital services prior to his/her transfer to the SNF. SNF inpatient care is necessary for the following reasons
== END 2017-04-09 13:02 | DRG 310 ==
LOC: MED 11:25 → ED 11:25 → CCU 13:59 → MED 04-08 13:40
PROVIDERS: ADMIT Internal Medicine Cardiovascular Disease; ATTEND Internal Medicine Cardiovascular Disease